=== PATIENT | male | born 1975 | race African-American/Black ===

== ENCOUNTER 2016-11-06 23:02 | Emergency (ER) | payer MEDICAID ==
--- NOTE | 2016-11-07 00:55 | RADIOLOGY REPORT (SQ) ---
EXAM DESCRIPTION: CHEST SINGLE VIEW COMPLETED DATE/TIME: 11/07/2016 12:27 am REASON FOR STUDY: cough COMPARISON: 07/08/2012 NUMBER OF VIEWS: One view. TECHNIQUE: Frontal radiographic image acquired of the chest. LIMITATIONS: None. FINDINGS: LUNGS: Clear. Normal inflation. Pulmonary vascularity normal. No radiopaque foreign bod y. HEART AND MEDIASTINUM: Normal size, no mass or congenital abnormality suggested. BONES: No fracture, worrisome bone lesion or congenital abnormality suggested. BOWEL GAS PATTERN: Non-obstructive. No suggestion of upper abdominal mass. HARDWARE: None in the chest. OTHER: No other significant finding. IMPRESSION: ONE VIEW PEDIATRIC CHEST RADIOGRAPH WITHOUT SIGNIFICANT FINDING. TECHNICAL DOCUMENTATION: JOB ID: [id number] [employer]- All Rights Reserved
[2016-11-07] MEDS ORDERED: OXYMETAZOLINE HCL 0.05% NASAL SPRAY 15 ML BOTTLE NASL ONE (01:10)
[2016-11-07] MEDS ORDERED: AMOXICILLIN TR/POT CLAVULANATE 250-62.5 MG/5 ML 75 ML PO ONE (01:10)
--- NOTE | 2016-11-07 01:15 | ER Document Report ---
ED General - General Chief Complaint: Congestion Stated Complaint: COUGH,CONGESTION Time Seen by Provider: 11/06/16 23:44 Cannot obtain history due to: Mentally challenged Notes: Patient is a 41-year-old male with past medical history of severe MR, who presents with maternal concern regarding noisy breathing for the past 24 hours. She is concerned that he may have a pneumonia. Notes multiple sick contacts of similar sickness. Patient has had copious rhinorrhea and is unable to clear his nose. History is otherwise extremely limited as patient is completely nonverbal and unable to participate history taking. Mother has not noted any fever, change in baseline behavior or vomiting. TRAVEL OUTSIDE OF THE [place] IN LAST 30 DAYS: No - Related Data Allergies/Adverse Reactions: No Known Allergies Allergy (Verified 11/07/16 01:33) Past Medical History - General Information source: Relative - Social History Smoking Status: Never Smoker Frequency of alcohol use: None Drug Abuse: None Lives with: Family Family History: Reviewed & Not Pertinent Patient has suicidal ideation: No Patient has homicidal ideation: No Neurological Medical History: Reports: Hx Seizures Renal/ Medical History: Denies: Hx Peritoneal Dialysis - Immunizations Hx Diphtheria, Pertussis, Tetanus Vaccination: No Review of Systems - Review of Systems -: Yes ROS unobtainable due to patient's medical condition Physical Exam - Vital signs Vitals: Temp Pulse Resp BP Pulse Ox 97.4 F 78 18 106/83 96 11/06/16 23:13 11/06/16 23:13 11/06/16 23:13 11/06/16 23:13 11/06/16 23:13 Interpretation: Normal Notes: PHYSICAL EXAMINATION: GENERAL: Cachectic, chronically ill in appearance but in no acute distress HEAD: Atraumatic, EYES: Pupils equal round and reactive to light, sclera anicteric, conjunctiva are normal. ENT: Copious rhinorrhea, oropharynx clear without exudates. Moist mucous membranes. NECK: supple without lymphadenopathy LUNGS: Breath sounds clear to auscultation bilaterally and equal. Abdomen is upper airway noises bilaterally. HEART: Regular rate and rhythm without murmurs ABDOMEN: Soft, normoactive bowel sounds. No guarding, no rebound. No masses appreciated. EXTREMITIES: Contractures of the bilateral upper and lower extremities. NEUROLOGICAL: Unable to assess. Patient does not move any extremity on command. PSYCH: Nonverbal SKIN: Warm, Dry, normal turgor, no rashes or lesions noted. Course - Re-evaluation Re-evalutation: 11/07/16 01:10 Patient is a 41-year-old patient with severe MR, contracted, emaciated at baseline, nonverbal and unable to communicate needs or wants. Presents with regarding concerns about nasal congestion and cough. Patient is overall nontoxic in appearance, vitals within normal limits, no acute distress. Chest x -ray is clear without evidence of pneumonia. On exam patient has a prominent transmission of upper airway noises and has copious rhinorrhea on exam he is unable to blow his nose. TMs are clear bilaterally. He does have diffuse gingivitis on exam and the mother has asked for antibiotics for treatment of this. Will provide oxymetazoline for the nasal congestion and began Augmentin for gingivitis per maternal request. At this time will discharge with return precautions and follow-up recommendations. Verbal discharge instructions given a the bedside and opportunity for questions given. Medication warnings reviewed. Patient is in agreement with this plan and has verbalized understanding of return precautions and the need for primary care follow-up in the next 24-72 hours. - Vital Signs Vital signs: Temp Pulse Resp BP Pulse Ox 98.0 F 86 20 146/81 H 99 11/07/16 01:37 11/07/16 01:37 11/07/16 01:37 11/07/16 01:37 11/07/16 01:37 Discharge - Discharge Clinical Impression: Nasal congestion, Gingivitis Upper respiratory infection Qualifiers: URI type: unspecified URI Qualified Code(s): J06.9 - Acute upper respiratory infection, unspecified Condition: Good Disposition: HOME, SELF-CARE Additional Instructions: Please provide antibiotics as directed. Follow-up with your sons dentist. Return if he develops worsening breathing, fever greater than 101F, persistent vomiting or any other symptoms that are worrisome to you. Prescriptions: Amoxicillin/Potassium Clav [Augmentin 250-62.5 mg/5 ml] 250 mg PO BID 7 Days
[2016-11-07] MEDS ORDERED: AMOXICILLIN TR/POT CLAVULANATE 250-62.5 MG/5 ML 75 ML ONE (01:39)
[2016-11-07 02:00] VITALS: BP 146/81
== END 2016-11-07 01:55 | disposition home or self-care (01) ==
LOC: ER 23:02
DX: J06.9 Acute upper respiratory infection, unspecified (principal); R09.81 Nasal congestion; K05.10 Chronic gingivitis, plaque induced; R05 Cough
CPT/HCPCS: 99283; 71010; J3490 ×2

== ENCOUNTER 2017-08-18 17:09 | Inpatient (IN) | payer MEDICAID ==
--- NOTE | 2017-08-18 18:09 | ER Document Report ---
ED Medical Screen (RME) - General Chief Complaint: Fever Stated Complaint: FEVER Time Seen by Provider: 08/18/17 18:07 Notes: Patient was seen by the primary care doctor yesterday. Patient was diagnosed with a possible ear infection and placed on Augmentin. However today pt continues to have congestion and fevers. Mom called the primary care physician who referred them to the emergency department. Mom feels that the patient is more bloated than usual. She states that when he was like this before he had a pneumothorax. TRAVEL OUTSIDE OF THE [place] IN LAST 30 DAYS: No - Related Data Allergies/Adverse Reactions: No Known Allergies Allergy (Verified 08/18/17 17:10) Past Medical History Neurological Medical History: Reports: Hx Seizures Renal/ Medical History: Denies: Hx Peritoneal Dialysis - Immunizations Hx Diphtheria, Pertussis, Tetanus Vaccination: No Physical Exam - Vital signs Vitals: Temp Pulse Resp BP Pulse Ox 98.1 F 104 H 20 94/64 L 94 08/18/17 17:33 08/18/17 17:33 08/18/17 17:33 08/18/17 17:33 08/18/17 17:33 Course - Vital Signs Vital signs: Temp Pulse Resp BP Pulse Ox 98.1 F 104 H 20 94/64 L 94 08/18/17 17:33 08/18/17 17:33 08/18/17 17:33 08/18/17 17:33 08/18/17 17:33 Doctor's Discharge - Discharge Referrals: MILA ELIZABETH MD [Primary Care Provider] - Follow up as needed
--- NOTE | 2017-08-18 19:17 | RADIOLOGY REPORT (SQ) ---
EXAM DESCRIPTION: CHEST SINGLE VIEW COMPLETED DATE/TIME: 08/18/2017 6:44 pm REASON FOR STUDY: fever/congested COMPARISON: 11/07/2016 EXAM PARAMETERS: NUMBER OF VIEWS: One view. TECHNIQUE: 2 frontal radiographic views of the chest acquired. RADIATION DOSE: NA LIMITATIONS: None. FINDINGS: LUNGS AND PLEURA: No opacities, masses or pneumothorax. No pleural effusion. MEDIASTINUM AND HILAR STRUCTURES: No masses. Contour normal. HEART AND VASCULAR STRUCTURES: Heart normal in size. Normal vasculature. BONES: No acute findings. HARDWARE: None in the chest. OTHER: No other significant finding. IMPRESSION: NO ACUTE RADIOGRAPHIC FINDING IN THE CHEST. TECHNICAL DOCUMENTATION: JOB ID: [id number] [employer]- All Rights Reserved Reading location - IP/workstation name: [email or web address]
[2017-08-18 19:43] LABS: HEMATOCRIT 22.9 % (37.9-51.0); MEAN CORPUSCULAR HEMOGLOBIN 16.3 pg (27.0-33.4); MEAN CORPUSCULAR HGB CONC 26.7 g/dL (32.0-36.0); MEAN CORPUSCULAR VOLUME 61 fl (80-97); RED BLOOD COUNT 3.74 10^6/uL (4.35-5.55); RED CELL DISTRIBUTION WIDTH 35.2 % (11.5-14.0); WHITE BLOOD COUNT 16.4 10^3/uL (4.0-10.5)
[2017-08-18 20:06] LABS: HEMOGLOBIN 6.1 g/dL (13.5-17.0)
[2017-08-18 20:07] LABS: ALANINE AMINOTRANSFERASE 23 U/L (21-72); ALKALINE PHOSPHATASE 54 U/L (38-126); ANION GAP 10 (5-19); ASPARTATE AMINO TRANSFERASE 12 U/L (17-59); BILIRUBIN,DIRECT 0.2 mg/dL (0.0-0.4); BILIRUBIN,TOTAL 0.2 mg/dL (0.2-1.3); BLOOD UREA NITROGEN 12 mg/dL (7-20); CALCIUM 9.2 mg/dL (8.4-10.2); CARBON DIOXIDE 26 mmol/L (22-30); CHLORIDE 107 mmol/L (98-107); GLUCOSE 97 mg/dL (75-110); POTASSIUM 4.2 mmol/L (3.6-5.0); SODIUM 142.8 mmol/L (137-145); TOTAL PROTEIN 6.9 g/dL (6.3-8.2)
[2017-08-18 20:08] LABS: ABSOLUTE MONOCYTES # (MANUAL) 0.7 10^3/uL (0.1-1.4); ABSOLUTE NEUTROPHILS# (MANUAL) 12.5 10^3/uL (1.7-8.2); BASOPHILS % (MANUAL) 0 % (0-2); EOSINOPHILS % (MANUAL) 2 % (0-6); LYMPHOCYTES % (MANUAL) 18 % (13-45); MONOCYTES % (MANUAL) 4 % (3-13); SEGMENTED NEUTROPHILS % (MAN) 76 % (42-78); TOTAL CELLS COUNTED 100
[2017-08-18 20:10] LABS: ANISOCYTOSIS 4+; HYPOCHROMASIA 2+; OVALOCYTES SLIGHT; PLATELET COMMENT INCREASED; POIKILOCYTOSIS 2+; TOXIC GRANULATION SLIGHT
[2017-08-18 20:11] LABS: PLATELET COUNT 1120 10^3/uL (150-450)
[2017-08-18 21:13] LABS: AMORPHOUS SEDIMENT,URINE TRACE /HPF; APPEARANCE,URINE CLOUDY; BILIRUBIN,URINE NEGATIVE (NEGATIVE); COLOR,URINE YELLOW; GLUCOSE, URINE NEGATIVE (NEGATIVE); KETONES,URINE NEGATIVE (NEGATIVE); LEUKOCYTE ESTERASE,URINE NEGATIVE (NEGATIVE); NITRITE,URINE NEGATIVE (NEGATIVE); PROTEIN,URINE NEGATIVE (NEGATIVE); URINE SPECIFIC GRAVITY 1.018
--- NOTE | 2017-08-18 21:40 | ER Document Report ---
ED General - General Chief Complaint: Fever Stated Complaint: FEVER Time Seen by Provider: 08/18/17 18:07 Notes: 42-year-old to the emergency department for evaluation of intermittent fevers. Patient was started on antibiotics a few days ago for possible ear infection. Patient severely handicapped and he can care of by family members. Has been eating. Mom states that he has not had a bowel movement for several days. Seems to have bloating of the abdomen and difficulty breathing. Denies any change black tarry stools or blood bright red blood in the stool. No vomiting. Currently taking Augmentin. Followed by Dr. Childress. TRAVEL OUTSIDE OF THE [place] IN LAST 30 DAYS: No - HPI Onset: Yesterday Onset/Duration: Gradual - Related Data Allergies/Adverse Reactions: No Known Allergies Allergy (Verified 08/18/17 19:20) Past Medical History - General Information source: Parent - Social History Smoking Status: Never Smoker Cigarette use (# per day): No Frequency of alcohol use: None Drug Abuse: None Lives with: Family, Parents Family History: Reviewed & Not Pertinent Patient has suicidal ideation: No Patient has homicidal ideation: No Neurological Medical History: Reports: Hx Seizures Renal/ Medical History: Denies: Hx Peritoneal Dialysis - Immunizations Hx Diphtheria, Pertussis, Tetanus Vaccination: No Review of Systems - Review of Systems -: Yes ROS unobtainable due to patient's medical condition Physical Exam - Vital signs Vitals: Temp Pulse Resp BP Pulse Ox 98.1 F 104 H 20 94/64 L 94 08/18/17 17:33 08/18/17 17:33 08/18/17 17:33 08/18/17 17:33 08/18/17 17:33 Interpretation: Tachycardic - General Notes: Patient with bilateral upper extremity contractures. Obvious developmental delay. Nonverbal. Burning eyes. - HEENT Head: Normocephalic, Atraumatic Eyes: Normal Pupils: PERRL - Respiratory Respiratory status: No respiratory distress Chest status: Nontender Breath sounds: Normal Chest palpation: Normal - Cardiovascular Rhythm: Tachycardia Heart sounds: Normal auscultation Murmur: No - Abdominal Inspection: Normal Distension: No distension Bowel sounds: Normal Tenderness: Nontender Organomegaly: No organomegaly - Back Back: Normal, Nontender - Extremities General upper extremity: Normal inspection, Nontender, Normal color, Normal ROM , Normal temperature General lower extremity: Normal inspection, Nontender, Normal color, Normal ROM , Normal temperature, Normal weight bearing. No: Cece's sign - Skin Skin Temperature: Warm Skin Moisture: Dry Skin Color: Normal Course - Re-evaluation Re-evalutation: 08/18/17 23:35 CT scan of the chest abdomen pelvis unremarkable for any significant pathology other than some large stool burden in the sigmoid colon. Patient has a grossly abnormal CBC with elevated WBC, low H&H and extremely high platelets. No fever is been recorded while in the emergency department. I have been in the room multiple times and explained to the mother on multiple occasions during this visit what my treatment plan is. I have consulted the hospitalist for admission however hospitalist would like to get repeat blood draw performed in for me to consult with a able seaman to see if this is an appropriate admission. I do not feel compelled at this time to call hematology and to like to repeat CBC as more than likely this represents a laboratory error. If not I have no problem calling. Patient is occult blood negative at this time. 08/18/17 23:59 Hemoglobin is dropped to 5.8 from 6.1. Occult blood negative in the stool. Consulted GI who is comfortable keeping patient here. Waiting on the final differential on the CBC. Ordered blood at this time. Will begin transfusion. 08/19/17 00:20 Altered both hematology as well as gastroenterology as well as internal medicine. They have asked me to go ahead and cover with Zosyn and get blood culture and lactic acid. Only transfuse 1 unit of blood. Oncology will follow. GI will follow. Hospitalist will except. - Vital Signs Vital signs: Temp Pulse Resp BP Pulse Ox 98.1 F 104 H 20 94/64 L 94 08/18/17 17:33 08/18/17 17:33 08/18/17 17:33 08/18/17 17:33 08/18/17 17:33 - Laboratory Result Diagrams: 08/18/17 19:30 08/18/17 19:30 Laboratory results interpreted by me: 08/18/17 08/18/17 08/18/17 19:30 19:30 20:34 WBC 16.4 H RBC 3.74 L Hgb 6.1 L Hct 22.9 L MCV 61 L MCH 16.3 L MCHC 26.7 L RDW 35.2 H Plt Count 1120 H* Abs Neuts (Manual) 12.5 H Creatinine 0.45 L AST 12 L Urine Urobilinogen 4.0 H Crossmatch 08/18/17 21:34 WBC RBC Hgb Hct MCV MCH MCHC RDW Plt Count Abs Neuts (Manual) Creatinine AST Urine Urobilinogen Crossmatch See Detail Critical Care Note - Critical Care Note Total time excluding time spent on procedures (mins): 60 Comments: Anemia, GI bleed, consultation with specialists Discharge - Discharge Clinical Impression: Thrombocytosis Anemia Qualifiers: Anemia type: unspecified type Qualified Code(s): D64.9 - Anemia, unspecified Disposition: ADMITTED INPATIENT Admitting Provider: [place] [facility] Unit Admitted: IMCU Referrals: MILA ELIZABETH MD [Primary Care Provider] - Follow up as needed
[2017-08-18] MEDS ORDERED: AMOXICILLIN TR/POT CLAVULANATE 250-62.5 MG/5 ML 75 ML PO ONE (23:00)
--- NOTE | 2017-08-18 23:00 | RADIOLOGY REPORT (SQ) ---
EXAM DESCRIPTION: CT CHEST WITHOUT; CT ABD/PELVIS NO ORAL OR IV COMPLETED DATE/TIME: 08/18/2017 10:44 pm REASON FOR STUDY: fever, altered; abd pain, fever, bloating COMPARISON: None. TECHNIQUE: CT scan of the chest performed without intravenous contrast using helical scanning techni que. Images reviewed with lung, soft tissue and bone windows. Reconstructed coronal and sagittal MPR images reviewed. All images stored on PACS. All CT scanners at this facility use dose modulation, iterative reconstruction, and/or weight based d osing when appropriate to reduce radiation dose to as low as reasonably achievable (ALARA). [facility]: Dose Right [facility]: CareDose [facility]: Dose Right [facility]: [employer] [facility]: GIS Cloud RADIATION DOSE: CT Rad equipment meets quality standard of care and radiation dose reduction techniq ues were employed. CTDIvol: 4.8 mGy. DLP: 249 mGy-cm. mGy. LIMITATIONS: None. FINDINGS: AXILLAE: No adenopathy. CHEST WALL: No masses. No subcutaneous air. LUNGS: No nodules or masses. No pneumothorax. No infiltrates. PLEURA: No effusions. No calcifications. THYROID: No masses or significant asymmetry. HILAR AND MEDIASTINAL STRUCTURES: No identified masses or abnormal nodes. AORTA AND GREAT VESSELS: No aneurysm. HEART: No pericardial effusion. HARDWARE AND LIFELINES: None. BONES: No significant finding. OTHER: No other significant finding. IMPRESSION: No acute findings in the chest. COMPARISON: None. TECHNIQUE: CT scan of the abdomen and pelvis performed without intravenous contrast and withoutoral contrast using helical scanning technique with dynamic intravenous contrast injection. Images review ed with lung, soft tissue and bone windows. Reconstructed coronal and sagittal MPR images reviewed. All images stored on PACS. All CT scanners at this facility use dose modulation, iterative reconstruction, and/or weight based d osing when appropriate to reduce radiation dose to as low as reasonably achievable (ALARA). [facility]: [facility]: SureCare [facility]: Dose Right [facility]: [employer] 4D [facility]: GIS Cloud RADIATION DOSE: CT Rad equipment meets quality standard of care and radiation dose reduction techniq ues were employed. CTDIvol: 4.8 mGy. DLP: 249 mGy-cm.mGy. LIMITATIONS: None. FINDINGS: LIVER: Normal size. No masses. No dilated ducts. SPLEEN: Normal size. No focal lesions. PANCREAS: No masses. No significant calcifications. No adjacent inflammation or peripancreatic flui d collections. Pancreatic duct not dilated. GALLBLADDER: No identified stones by CT criteria. No inflammatory changes to suggest cholecystitis. ADRENAL GLANDS: No significant masses or asymmetry. RIGHT KIDNEY AND URETER: No solid masses. Assessment limited by lack of IV contrast. No significant c alcification. No hydronephrosis or hydroureter. LEFT KIDNEY AND URETER: No solid masses. Assessment limited by lack of IV contrast. No significant ca lcification. No hydronephrosis or hydroureter. AORTA AND VESSELS: No aneurysm. RETROPERITONEUM: No retroperitoneal adenopathy, hemorrhage or masses. APPENDIX: Normal. LARGE AND SMALL BOWEL: Large amount of stool present in the colon, particularly the rectosigmoid colo n. No evidence for focal inflammatory changes or free fluid. . ABDOMINAL WALL: No hernia or masses. PERITONEAL CAVITY: No free air. No free fluid. No peritoneal implants or masses. PELVIS: No mass or free fluid. Normal bladder. BONES: No acute findings. OTHER: No other significant finding. IMPRESSION: Large amount of stool present in the colon, particularly the rectosigmoid colon. No dillon dence for focal inflammatory changes or free fluid. TECHNICAL DOCUMENTATION: JOB ID: [id number] [place]-72 Quality ID # [id number]: Final reports with documentation of one or more dose reduction techniques (e.g., Au tomated exposure control, adjustment of the mA and/or kV according to patient size, use of iterative reconstruction technique) 2010 [employer]- All Rights Reserved Reading location - IP/workstation name: [email or web address]
--- NOTE | 2017-08-18 23:00 | RADIOLOGY REPORT (SQ) ---
EXAM DESCRIPTION: CT CHEST WITHOUT; CT ABD/PELVIS NO ORAL OR IV COMPLETED DATE/TIME: 08/18/2017 10:44 pm REASON FOR STUDY: fever, altered; abd pain, fever, bloating COMPARISON: None. TECHNIQUE: CT scan of the chest performed without intravenous contrast using helical scanning techni que. Images reviewed with lung, soft tissue and bone windows. Reconstructed coronal and sagittal MPR images reviewed. All images stored on PACS. All CT scanners at this facility use dose modulation, iterative reconstruction, and/or weight based d osing when appropriate to reduce radiation dose to as low as reasonably achievable (ALARA). [facility]: Dose Right [facility]: CareDose [facility]: Dose Right [facility]: [facility]: Differential RADIATION DOSE: CT Rad equipment meets quality standard of care and radiation dose reduction techniq ues were employed. CTDIvol: 4.8 mGy. DLP: 249 mGy-cm. mGy. LIMITATIONS: None. FINDINGS: AXILLAE: No adenopathy. CHEST WALL: No masses. No subcutaneous air. LUNGS: No nodules or masses. No pneumothorax. No infiltrates. PLEURA: No effusions. No calcifications. THYROID: No masses or significant asymmetry. HILAR AND MEDIASTINAL STRUCTURES: No identified masses or abnormal nodes. AORTA AND GREAT VESSELS: No aneurysm. HEART: No pericardial effusion. HARDWARE AND LIFELINES: None. BONES: No significant finding. OTHER: No other significant finding. IMPRESSION: No acute findings in the chest. COMPARISON: None. TECHNIQUE: CT scan of the abdomen and pelvis performed without intravenous contrast and withoutoral contrast using helical scanning technique with dynamic intravenous contrast injection. Images review ed with lung, soft tissue and bone windows. Reconstructed coronal and sagittal MPR images reviewed. All images stored on PACS. All CT scanners at this facility use dose modulation, iterative reconstruction, and/or weight based d osing when appropriate to reduce radiation dose to as low as reasonably achievable (ALARA). [facility]: Dose Right [facility] SureCare [facility]: Dose Right [facility]: [employer] 4D [facility]: Differential RADIATION DOSE: CT Rad equipment meets quality standard of care and radiation dose reduction techniq ues were employed. CTDIvol: 4.8 mGy. DLP: 249 mGy-cm.mGy. LIMITATIONS: None. FINDINGS: LIVER: Normal size. No masses. No dilated ducts. SPLEEN: Normal size. No focal lesions. PANCREAS: No masses. No significant calcifications. No adjacent inflammation or peripancreatic flui d collections. Pancreatic duct not dilated. GALLBLADDER: No identified stones by CT criteria. No inflammatory changes to suggest cholecystitis. ADRENAL GLANDS: No significant masses or asymmetry. RIGHT KIDNEY AND URETER: No solid masses. Assessment limited by lack of IV contrast. No significant c alcification. No hydronephrosis or hydroureter. LEFT KIDNEY AND URETER: No solid masses. Assessment limited by lack of IV contrast. No significant ca lcification. No hydronephrosis or hydroureter. AORTA AND VESSELS: No aneurysm. RETROPERITONEUM: No retroperitoneal adenopathy, hemorrhage or masses. APPENDIX: Normal. LARGE AND SMALL BOWEL: Large amount of stool present in the colon, particularly the rectosigmoid colo n. No evidence for focal inflammatory changes or free fluid. . ABDOMINAL WALL: No hernia or masses. PERITONEAL CAVITY: No free air. No free fluid. No peritoneal implants or masses. PELVIS: No mass or free fluid. Normal bladder. BONES: No acute findings. OTHER: No other significant finding. IMPRESSION: Large amount of stool present in the colon, particularly the rectosigmoid colon. No dillon dence for focal inflammatory changes or free fluid. TECHNICAL DOCUMENTATION: JOB ID: [id number] [place]-72 Quality ID # [id number]: Final reports with documentation of one or more dose reduction techniques (e.g., Au tomated exposure control, adjustment of the mA and/or kV according to patient size, use of iterative reconstruction technique) 2010 [employer] All Rights Reserved Reading location - IP/workstation name: [email or web address]
[2017-08-18] MEDS ORDERED: AMOXICILLIN TR/POT CLAVULANATE 250-62.5 MG/5 ML 75 ML ONE (23:34)
[2017-08-18 23:49] LABS: MEAN CORPUSCULAR HEMOGLOBIN 16.1 pg (27.0-33.4); MEAN CORPUSCULAR HGB CONC 26.6 g/dL (32.0-36.0); MEAN CORPUSCULAR VOLUME 61 fl (80-97); PLATELET COUNT 980 10^3/uL (150-450); RED BLOOD COUNT 3.62 10^6/uL (4.35-5.55); RED CELL DISTRIBUTION WIDTH 35.5 % (11.5-14.0); WHITE BLOOD COUNT 14.9 10^3/uL (4.0-10.5)
[2017-08-18 23:52] LABS: HEMOGLOBIN 5.8 g/dL (13.5-17.0)
[2017-08-18] MEDS ORDERED: NORMAL SALINE 250 ML IV PRN (23:52)
[2017-08-18] MEDS ORDERED: PANTOPRAZOLE SODIUM 40 MG VIAL IV ONE (23:54)
[2017-08-19 00:20] LABS: ABSOLUTE LYMPHOCYTES# (MANUAL) 2.5 10^3/uL (0.5-4.7); ABSOLUTE MONOCYTES # (MANUAL) 0.6 10^3/uL (0.1-1.4); BASOPHILS % (MANUAL) 0 % (0-2); EOSINOPHILS % (MANUAL) 5 % (0-6); LYMPHOCYTES % (MANUAL) 17 % (13-45); MONOCYTES % (MANUAL) 4 % (3-13); SEGMENTED NEUTROPHILS % (MAN) 74 % (42-78); TOTAL CELLS COUNTED 100; TOXIC GRANULATION 1+; TOXIC VACUOLATION PRESENT
[2017-08-19] MEDS ORDERED: PIPERACILLIN/TAZOBACTAM 3.375 GM VIAL IV ONE (00:20)
[2017-08-19 00:21] LABS: ANISOCYTOSIS 4+; HYPOCHROMASIA 1+; POIKILOCYTOSIS 3+
[2017-08-19 00:22] LABS: HELMET CELLS 1+; OVALOCYTES 1+
[2017-08-19 00:23] LABS: SCHISTOCYTES 2+; SPHEROCYTES 2+; TARGET CELLS 1+
[2017-08-19 00:24] LABS: BURR CELLS SLIGHT; PLATELET COMMENT INCREASED; PLATELET GIANT PRESENT; PLATELET LARGE PRESENT; TEAR DROP CELLS SLIGHT
[2017-08-19] MEDS ORDERED: ACETAMINOPHEN 325 MG TABLET PO PRN ×2 (00:27→09:44)
[2017-08-19] MEDS ORDERED: PROMETHAZINE HCL INJ 25 MG/1 ML VIAL IV PRN ×2 (00:27→08:00)
[2017-08-19] MEDS ORDERED: ALBUTEROL SULFATE 0.083% NEB 2.5 MG/3 ML AMPUL NEB PRN (00:38)
[2017-08-19] MEDS ORDERED: BISACODYL 5 MG TABEC PO ONE (00:38)
[2017-08-19] MEDS ORDERED: BISACODYL 10 MG SUPP.RECT PR PRN (00:43)
[2017-08-19] MEDS ORDERED: PIPERACILLIN/TAZOBACTAM 3.375 GM VIAL IV PRN (00:47)
[2017-08-19 01:03] LABS: INTERNATIONAL RATION (INR) 1.11; PROTHROMBIN TIME 15.1 SEC (11.4-15.4)
[2017-08-19 01:04] LABS: PARTIAL THROMBOPLASTIN TIME 40.6 SEC (23.5-35.8)
[2017-08-19] MEDS: IPRATROPIUM/ALBUTEROL 0.5-2.5 MG/3 ML AMPUL NEB SCH ×4 (02:35→19:33)
[2017-08-19 02:37] LABS: ABSOLUTE RETICS # 0.057 10^6/uL (0.028-0.122); RETICULOCYTE COUNT (AUTO) 1.47 % (0.66-2.85)
[2017-08-19 02:47] LABS: IRON(TIBC) 12.6 ug/dL (49-181)
--- NOTE | 2017-08-19 02:50 | PDOC H&P ---
History of Present Illness Admission Date/PCP: MILA ELIZABETH MD Patient complains of: Tachypnea and abdominal distention for a few days per mother. History of Present Illness: CHRISTIE SIMPSON is a 42 year old nonverbal, contracted male with history of cerebral palsy and seizure disorder is admitted with above-mentioned complaints. The history was obtained from his mother at bedside and the ED physician and notes. According to his mother, the patient had decreased p.o. intake last week so she took him to his PCPs who thought that he had a strep throat since 4 of her grand children had it. He was started on a course of Augmentin which he finished. He seemed to be doing well but 3-4 days ago, she noticed that he was tachypneic and sounded congested and he was using his abdominal muscles to breathe. He was also more lethargic and looking weaker than his baseline. According to his mother, he is on regular diet and he seldomly chokes when he eats. There was no report of any vomiting. He was seen again by his primary physician on 08/16/2017 who thought that the patient may have had ear infection. The ear exam was limited since he had cerumen bilaterally so he was given eardrops and was restarted on Augmentin. on 08/18/2017, his mother called home health nurse since she was concerned about his breathing. She also noticed that he has been bloated since his PCP's visit. He apparently has been constipated for about a week with minimal bowel movement. She said that he had stool smears with no hematochezia or melena and his urine output was adequate. She decided to bring him to the hospital for further management and treatment. In the ED, his temperature was 98.1, heart rate 104, respiratory rate 20, blood pressure 94/64 with oxygen saturation of 94% on room air. His WBC was 16.4 with hemoglobin of 6.1 and platelet count of 1120K. UA and stool guaiac were both negative. A chest x-ray as well as CAT scan of the chest/abdomen and pelvis were done with the latter showing large amount of stool. He received 3.325 g Zosyn 1 and 1 unit of packed red blood was ordered. Past Medical History Medical History: Other - cerebral palsy; seizure disorder. Neurological Medical History: Reports: Seizures Past Surgical History Past Surgical History: Reports: Other - muscle release since contracted per mother. Social History Lives with: Family, Parents Smoking Status: Never Smoker Cigarettes Packs Per Day: 0 Frequency of Alcohol Use: None Drugs: None - Advance Directive Resuscitation Status: Full Code Family History Parental Family History Reviewed: Yes - no cardiac disease in family. Children Family History Reviewed: No Sibling(s) Family History Reviewed.: Yes Medication/Allergy Allergies/Adverse Reactions: No Known Allergies Allergy (Verified 08/18/17 19:20) Review of Systems ROS unobtainable: Other - Pertinent positives and negatives as detailed in the HPI. Physical Exam Vital Signs: Temp Pulse Resp BP Pulse Ox 98.1 F 104 H 20 94/64 L 94 08/18/17 17:33 08/18/17 17:33 08/18/17 17:33 08/18/17 17:33 08/18/17 17:33 Intake & Output 08/17/17 08/18/17 08/19/17 06:59 06:59 06:59 Weight 21.001 kg General appearance: PRESENT: mild distress - on room air, thin, other - contracted. Head exam: PRESENT: atraumatic Eye exam: PRESENT: conjunctiva pink, PERRLA Ear exam: PRESENT: normal external ear exam, other - cerumen bilateral ears Mouth exam: PRESENT: moist Respiratory exam: PRESENT: decreased breath sounds. ABSENT: rales, rhonchi, wheezes Cardiovascular exam: PRESENT: RRR - S1 S2 normal. Pulses: PRESENT: normal dorsalis pedis pul GI/Abdominal exam: PRESENT: normal bowel sounds, soft. ABSENT: distended, rebound, tenderness Rectal exam: PRESENT: deferred Extremities exam: PRESENT: other - contracted.. ABSENT: pedal edema Neurological exam: PRESENT: alert, awake Skin exam: PRESENT: dry, intact, warm. ABSENT: cyanosis, rash Results Laboratory Results: 08/18/17 19:30 08/18/17 08/18/17 08/18/17 19:30 19:30 20:34 WBC 16.4 H RBC 3.74 L Hgb 6.1 L Hct 22.9 L MCV 61 L MCH 16.3 L MCHC 26.7 L RDW 35.2 H Plt Count 1120 H* Seg Neutrophils % Not Reportable Lymphocytes % Not Reportable Monocytes % Not Reportable Eosinophils % Not Reportable Basophils % Not Reportable Absolute Neutrophils Not Reportable Absolute Lymphocytes Not Reportable Absolute Monocytes Not Reportable Absolute Eosinophils Not Reportable Absolute Basophils Not Reportable Sodium 142.8 Potassium 4.2 Chloride 107 Carbon Dioxide 26 Anion Gap 10 BUN 12 Creatinine 0.45 L Est GFR ( Amer) > 60 Est GFR (Non-Af Amer) > 60 Glucose 97 Calcium 9.2 Total Bilirubin 0.2 AST 12 L ALT 23 Alkaline Phosphatase 54 Total Protein 6.9 Albumin 4.0 Lipase 111.0 Urine Color YELLOW Urine Appearance CLOUDY Urine pH 7.0 Ur Specific Sledge 1.018 Urine Protein NEGATIVE Urine Glucose (UA) NEGATIVE Urine Ketones NEGATIVE Urine Blood NEGATIVE Urine Nitrite NEGATIVE Ur Leukocyte Esterase NEGATIVE Urine WBC (Auto) 7 Urine RBC (Auto) 6 Stool Occult Blood Blood Type Antibody Screen 08/18/17 08/18/17 08/18/17 21:34 22:58 23:40 WBC RBC Hgb Hct MCV MCH MCHC RDW Plt Count Seg Neutrophils % Not Reportable Lymphocytes % Not Reportable Monocytes % Not Reportable Eosinophils % Not Reportable Basophils % Not Reportable Absolute Neutrophils Not Reportable Absolute Lymphocytes Not Reportable Absolute Monocytes Not Reportable Absolute Eosinophils Not Reportable Absolute Basophils Not Reportable Sodium Potassium Chloride Carbon Dioxide Anion Gap BUN Creatinine Est GFR ( Amer) Est GFR (Non-Af Amer) Glucose Calcium Total Bilirubin AST ALT Alkaline Phosphatase Total Protein Albumin Lipase Urine Color Urine Appearance Urine pH Ur Specific Sledge Urine Protein Urine Glucose (UA) Urine Ketones Urine Blood Urine Nitrite Ur Leukocyte Esterase Urine WBC (Auto) Urine RBC (Auto) Stool Occult Blood NEGATIVE Blood Type A POSITIVE Antibody Screen NEGATIVE Impressions: Chest X-Ray 08/18/17 18:07 IMPRESSION: NO ACUTE RADIOGRAPHIC FINDING IN THE CHEST. Chest CT 08/18/17 20:54 IMPRESSION: No acute findings in the chest. IMPRESSION: Large amount of stool present in the colon, particularly the rectosigmoid colon. No evidence for focal inflammatory changes or free fluid. Abdomen/Pelvis CT 08/18/17 20:55 IMPRESSION: No acute findings in the chest. IMPRESSION: Large amount of stool present in the colon, particularly the rectosigmoid colon. No evidence for focal inflammatory changes or free fluid. Assessment & Plan - Diagnosis (1) Sepsis Qualifiers: Sepsis type: sepsis due to unspecified organism Qualified Code(s): A41.9 - Sepsis, unspecified organism Is this a current diagnosis for this admission?: Yes Plan: Given tachycardia and fever prior to admission, possibly secondary to aspiration pneumonitis/pneumonia and/or acute bronchitis. Chest x-ray, UA and CAT scans of the chest/abdomen/pelvis were reviewed. The CAT scans were done without IV contrast (Limited IV access) so they were limited studies. We will continue broad coverage antibiotics with Zosyn for now and follow-up blood cultures and lactic acid. Aspiration precautions. (2) Tachypnea Is this a current diagnosis for this admission?: Yes Plan: Secondary to #1 and/or anemia. Will schedule DuoNeb treatments and mucinex in addition to albuterol as needed and continue Zosyn for now. Further management as detailed below (3) Anemia Qualifiers: Anemia type: unspecified type Qualified Code(s): D64.9 - Anemia, unspecified Is this a current diagnosis for this admission?: Yes Plan: secondary to possibly iron deficiency and/or anemia of chronic disease. Hemoccult stool was negative. CAT scans abdomen/pelvis only showed constipation (done without IV contrast). Will check iron studies, B12, folate and reticulocyte count. We will transfuse 1 unit of packed red blood cells and monitor H&H. Continue IV Protonix. GI and oncology were consulted by the ED physician. (4) Thrombocytosis Is this a current diagnosis for this admission?: Yes Plan: Possibly reactive in the setting of severe anemia and/or due to underlying pathology. Will continue to monitor H&H transfuse as indicated. The case was discussed between Dr. Devine of oncology and ED physician who will see the patient in a.m. (5) Seizure disorder Is this a current diagnosis for this admission?: No Plan: No report of any recent seizure activity. We will check phenobarbital level before restarting it (dose needs to be verified). This could cause megaloblastic anemia. Further management per oncology. (6) Constipation Is this a current diagnosis for this admission?: Yes Plan: Dulcolax supp. He may need manual disimpaction. - Time Time Spent: Greater than 70 Minutes Anticipated discharge: Home - Inpatient Certification Based on my medical assessment, after consideration of the patient's comorbidities, presenting symptoms, or acuity I expect that the services needed warrant INPATIENT care.: Yes I certify that my determination is in accordance with my understanding of Medicare's requirements for reasonable and necessary INPATIENT services [42 CFR 412.3e].: Yes
[2017-08-19 04:07] LABS: FOLATE > 20.00 ng/mL (>2.76)
[2017-08-19] MEDS: NORMAL SALINE 1000 ML 1,000 ML IV PRN ×2 (05:40→18:14)
[2017-08-19] MEDS ORDERED: PIPERACILLIN SODIUM/TAZOBACTAM 3.375 GM in NORMAL SALINE 100 ML IV SCH (06:00)
[2017-08-19 07:08] LABS: HEMATOCRIT 27.4 % (37.9-51.0); MEAN CORPUSCULAR HEMOGLOBIN 20.5 pg (27.0-33.4); MEAN CORPUSCULAR HGB CONC 30.8 g/dL (32.0-36.0); PLATELET COUNT 901 10^3/uL (150-450); RED CELL DISTRIBUTION WIDTH 35.3 % (11.5-14.0); WHITE BLOOD COUNT 9.4 10^3/uL (4.0-10.5)
[2017-08-19 07:12] LABS: HEMOGLOBIN 8.4 g/dL (13.5-17.0)
[2017-08-19 07:46] LABS: MEAN CORPUSCULAR VOLUME 67 fl (80-97)
[2017-08-19] MEDS ORDERED: IRON DEXTRAN INJ 100 MG/2 ML VIAL IV ONE (09:31)
[2017-08-19] MEDS ORDERED: DIPHENHYDRAMINE HCL 25 MG CAPSULE PO PRN (09:44)
--- NOTE | 2017-08-19 09:44 | PDOC CONSULTATION ---
Consultation Consult Date: 08/19/17 Consult reason:: Hematology consultation was requested for anemia and thrombocytosis. History of Present Illness Admission Date/PCP: 08/19/17 00:40 MILA ELIZABETH MD History of Present Illness: CHRISTIE SIMPSON is a 42 year old nonverbal, contracted male with history of cerebral palsy, muscular dystrophy, and seizure disorder is admitted with above- mentioned complaints. The history was obtained from his mother at bedside and the notes. According to his mother, the patient had decreased p.o. intake last week so she took him to his PCPs who thought that he had a strep throat since 4 of her grand children had it. He was started on a course of Augmentin which he finished. He seemed to be doing well but 3-4 days ago, she noticed that he was tachypneic and sounded congested and he was using his abdominal muscles to breathe. He was also more lethargic and looking weaker than his baseline. According to his mother, he is on regular diet and he seldomly chokes when he eats. There was no report of any vomiting. He was seen again by his primary physician on 08/16/2017 who thought that the patient may have had ear infection. The ear exam was limited since he had cerumen bilaterally so he was given eardrops and was restarted on Augmentin. on 08/18/2017, his mother called home health nurse since she was concerned about his breathing. She also noticed that he has been bloated since his PCP's visit. He apparently has been constipated for about a week with minimal bowel movement. She said that he had stool smears with no hematochezia or melena and his urine output was adequate. She decided to bring him to the hospital for further management and treatment. In the ED, his temperature was 98.1, heart rate 104, respiratory rate 20, blood pressure 94/64 with oxygen saturation of 94% on room air. His WBC was 16.4 with hemoglobin of 6.1 and platelet count of 1120K. UA and stool guaiac were both negative. A chest x-ray as well as CAT scan of the chest/abdomen and pelvis were done with the latter showing large amount of stool. He received 3.325 g Zosyn 1 and 1 unit of packed red blood was ordered. Today, mother states that he continues to have abnormal breathing and appears to be in pain. He has been given 1 unit PRBCs and his HGB and PLT have improved slightly. His ferritin was found to be 3. Past Medical History Neurological Medical History: Reports: Seizures Musculoskeltal Medical History: Reports: Other - Cerebral Palsey, Muscular Dystrophy Hematology History Note: No history of prior blood transfusion. Past Surgical History Past Surgical History: Reports: Other - muscle release since contracted per mother. Social History Lives with: Family, Parents Smoking Status: Never Smoker Cigarettes Packs Per Day: 0 Frequency of Alcohol Use: None Drugs: None - Advance Directive Resuscitation Status: Full Code Family History Parental Family History Reviewed: Yes - MGM with Lung Cancer Children Family History Reviewed: NA Sibling(s) Family History Reviewed.: Yes - Sister with Brain tumor. Other relatives with Mental retardation and HTN. Medication/Allergy Allergies/Adverse Reactions: No Known Allergies Allergy (Verified 08/18/17 19:20) Review of Systems ROS unobtainable: Due to mental status, Other - Patient non-verbal. Physical Exam Vital Signs: Temp Pulse Resp BP Pulse Ox 97.3 F 90 16 108/68 94 08/19/17 07:47 08/19/17 08:09 08/19/17 08:09 08/19/17 07:47 08/19/17 08:09 Intake & Output 08/18/17 08/19/17 08/20/17 06:59 06:59 06:59 Intake Total 350 Output Total 0 Balance 350 Exam: Very thin, small, 42 year old Male. Mother is at bedside. Head exam: PRESENT: normocephalic Eye exam: PRESENT: PERRLA Mouth exam: PRESENT: moist Neck exam: ABSENT: lymphadenopathy, tenderness Respiratory exam: PRESENT: clear to auscultation poncho Cardiovascular exam: PRESENT: RRR. ABSENT: systolic murmur GI/Abdominal exam: PRESENT: normal bowel sounds, soft, other - Difficult to asses otherwise. Cannot feel organomegaly due to contractures. Rectal exam: PRESENT: deferred Extremities exam: ABSENT: pedal edema Musculoskeletal exam: PRESENT: other - All 4 extremities very small and contracted. Neurological exam: PRESENT: awake, aphasic Psychiatric exam: PRESENT: other - Unable to fully determine. Focused psych exam: PRESENT: other - Unable to determine. Skin exam: PRESENT: normal color Results Laboratory Results: 08/19/17 06:35 08/19/17 08/19/17 08/19/17 00:42 00:42 00:42 WBC RBC Hgb Hct MCV MCH MCHC RDW Plt Count Retic Count (auto) 1.47 Absolute Retic 0.057 Lactic Acid 0.9 Iron 12.6 L TIBC 396 % Saturation 3 Ferritin 3.00 L Vitamin B12 Folate > 20.00 08/19/17 08/19/17 00:42 06:35 WBC 9.4 RBC 4.10 L Hgb 8.4 L D Hct 27.4 L MCV 67 L D MCH 20.5 L MCHC 30.8 L RDW 35.3 H Plt Count 901 H Retic Count (auto) Absolute Retic Lactic Acid Iron TIBC % Saturation Ferritin Vitamin B12 839.0 Folate Impressions: Chest X-Ray 08/18/17 18:07 IMPRESSION: NO ACUTE RADIOGRAPHIC FINDING IN THE CHEST. Chest CT 08/18/17 20:54 IMPRESSION: No acute findings in the chest. IMPRESSION: Large amount of stool present in the colon, particularly the rectosigmoid colon. No evidence for focal inflammatory changes or free fluid. Abdomen/Pelvis CT 08/18/17 20:55 IMPRESSION: No acute findings in the chest. IMPRESSION: Large amount of stool present in the colon, particularly the rectosigmoid colon. No evidence for focal inflammatory changes or free fluid. Assessment & Plan - Diagnosis (1) Anemia Qualifiers: Anemia type: iron deficiency Iron deficiency anemia type: unspecified iron deficiency Qualified Code(s): D50.9 - Iron deficiency anemia, unspecified Is this a current diagnosis for this admission?: Yes Plan: All labs point to iron deficiency as primary cause of his abnormal blood counts. He has received 1 unit pRBCs. I will also order INFeD 1000 mg x 1 dose today. Watch CBC and consider another unit pRBCs. Cause of the iron deficiency as yet unclear. Must rule out GI bleed. I agree with GI consult for EGD and colonoscopy. The elevated PLT are a common reaction to severe iron deficiency. If these do not normalize as his ferritin and HGB improve, then I will recommend further testing (2) Constipation Is this a current diagnosis for this admission?: Yes Plan: I would start regular bowel regimen. His mother states he usually has very hard stools. I will defer to GI for recommendations. - Plan Summary Plan Summary: Thank you for this consultation. I will be happy to follow him with you both inpatient and outpatient. Please call me directly with any concerns or questions.
[2017-08-19] MEDS ORDERED: IRON DEXTRAN COMPLEX 25 MG in SYRINGE, DISPOSABLE, 1 EACH IV PRN (09:46)
[2017-08-19] MEDS ORDERED: IRON DEXTRAN COMPLEX IV PRN ×2 (09:48)
[2017-08-19] MEDS ORDERED: NORMAL SALINE IV PRN ×2 (09:48)
[2017-08-19 10:10] LABS: PATH REVIEW PATHOLOGIST REVIEWED
[2017-08-19] MEDS: PIPERACILLIN SODIUM/TAZOBACTAM 3.375 GM in NORMAL SALINE 100 ML IV SCH ×3 (10:33→20:42)
[2017-08-19] MEDS ORDERED: FENTANYL CITRATE INJ/PF 100 MCG/2 ML AMPUL IV PRN ×2 (13:33)
[2017-08-19] MEDS ORDERED: PROPOFOL INJ 200 MG/20 ML VIAL IV ONE (14:21)
--- NOTE | 2017-08-19 14:49 | Operative Report ---
Operative Report DATE OF SURGERY: 08/19/17 Operative Report: The risks benefits and alternatives of the procedure explained to the patient in detail and informed consent is obtained.A GIF Olympus video scope was inserted into the patient's mouth and hypopharynx, the esophagus is identified intubated and insufflated, the scope was then advanced through the esophagus stomach and duodenum, retroflexion maneuver is done, the esophagus stomach and first and second portions of the duodenum examined PREOPERATIVE DIAGNOSIS: Rule out GI bleed POSTOPERATIVE DIAGNOSIS: Mild gastritis status post biopsy rule out Helicobacter pylori OPERATION: EGD with biopsy SURGEON: ISIDRO MATIAS ANESTHESIA: LMAC TISSUE REMOVED OR ALTERED: As noted above. COMPLICATIONS: None. ESTIMATED BLOOD LOSS: None. INTRAOPERATIVE FINDINGS: As noted above. PROCEDURE: Patient tolerated procedure well. He sent back to his room in good condition. Resume regular diet as noted Resume regular activity level No immediate postprocedure complications are noted. We will wait on biopsy. No active bleeding noted He is heme-negative on exam Likely does not have a GI issue We will wait for oncology recommendations with regards to his thrombocytosis
--- NOTE | 2017-08-19 14:55 | PDOC CONSULTATION ---
Consultation Consult Date: 08/18/17 Attending physician:: ISIDRO MATIAS Consult reason:: Possible GI bleeding History of Present Illness Admission Date/PCP: 08/19/17 00:40 MILA ELIZABETH MD History of Present Illness: I was called by the hospitalist physician overnight with regards to potential admission of this patient. He is a patient with cerebral palsy Was noted to be profoundly anemic Apparently he was noted to have heme negative stools. He is admitted to be transfused. He is not likely going to be able to tolerate prep for lower GI workup However EGD can be done to rule out upper GI bleed. Patient is at home lives with his mom. Patient apparently has not been refusing food There has been no significant regurgitation. No melena, hematemesis has been reported. Past Medical History Neurological Medical History: Reports: Seizures Musculoskeltal Medical History: Reports: Other - Cerebral Palsey, Muscular Dystrophy Past Surgical History Past Surgical History: Reports: Other - muscle release since contracted per mother. Social History Lives with: Family, Parents Smoking Status: Never Smoker Cigarettes Packs Per Day: 0 Frequency of Alcohol Use: None Drugs: None - Advance Directive Resuscitation Status: Full Code Family History Family History: Reviewed & Not Pertinent Parental Family History Reviewed: Yes Children Family History Reviewed: Unknown Sibling(s) Family History Reviewed.: Unknown Medication/Allergy Home Medications: Albuterol Sulfate [Ventolin 0.083% Neb 2.5 mg/3 ml Ampul] 1 vial IH RTQ4HP PRN 08/19/17 Chlorhexidine Gluconate [Periogard 0.12% Oral Rinse 15 ml] 1 applic MM BIDP PRN 08/19/17 Ciprofloxacin HCl/Dexameth [Ciprodex Otic Suspension 7.5 ml Bottle] 4 drop AU BID 08/19/17 Fluticasone Propionate [Flonase Nasal [place] 50 Mcg/[place] 16 gm] 1 spray NASL Q12 08/19/17 Ipratropium Patriot [Atrovent 0.02% Neb 0.5 Mg/2.5 Ml Vial.Neb] 0.5 mg IH RTQ8 08/19/17 Lansoprazole [Prevacid 15 Mg Odt Tablet] 15 mg PO BIDACBS 08/19/17 Phenobarbital [Phenobarbital 64.8 Mg Tablet] 64.8 mg PO DAILY 08/19/17 Allergies/Adverse Reactions: No Known Allergies Allergy (Verified 08/18/17 19:20) Review of Systems ROS unobtainable: Due to mental status Constitutional: ABSENT: fever(s), headache(s), night sweats, weakness, weight loss Eyes: ABSENT: visual disturbances Ears: ABSENT: hearing changes Nose, Mouth, and Throat: ABSENT: mouth pain, sore throat Cardiovascular: ABSENT: chest pain, orthropnea Respiratory: ABSENT: dyspnea, hemoptysis Gastrointestinal: ABSENT: hematemesis, hematochezia, melena, nausea, vomiting Genitourinary: ABSENT: dysuria, hematuria Musculoskeletal: ABSENT: deformity, joint swelling Integumentary: ABSENT: pruritus Neurological: ABSENT: syncope, tingling, tremor(s), vertigo Endocrine: ABSENT: polydipsia, polyphagia, polyuria Hematologic/Lymphatic: ABSENT: easy bruising Physical Exam Vital Signs: Temp Pulse Resp BP Pulse Ox 97.3 F 90 16 108/68 94 08/19/17 07:47 08/19/17 08:09 08/19/17 08:09 08/19/17 07:47 08/19/17 08:09 Intake & Output 08/18/17 08/19/17 08/20/17 06:59 06:59 06:59 Intake Total 350 150 Output Total 0 Balance 350 150 General appearance: PRESENT: mild distress, thin Head exam: PRESENT: atraumatic, normocephalic Eye exam: PRESENT: EOMI, PERRLA. ABSENT: scleral icterus Mouth exam: PRESENT: moist, neck supple Throat exam: ABSENT: tonsillar exudate, tonsillogmegaly Neck exam: ABSENT: meningismus, tenderness, thyromegaly Respiratory exam: PRESENT: unlabored. ABSENT: symmetrical, tachypnea, wheezes Cardiovascular exam: PRESENT: RRR, +S1, +S2 GI/Abdominal exam: PRESENT: soft. ABSENT: rebound, rigid, tenderness Extremities exam: ABSENT: joint swelling Focused psych exam: ABSENT: restlessness Skin exam: ABSENT: mottled, pallor, urticaria, vesicles Results Laboratory Results: 08/19/17 06:35 08/19/17 08/19/17 08/19/17 00:42 00:42 00:42 WBC RBC Hgb Hct MCV MCH MCHC RDW Plt Count Retic Count (auto) 1.47 Absolute Retic 0.057 Lactic Acid 0.9 Iron 12.6 L TIBC 396 % Saturation 3 Ferritin 3.00 L Vitamin B12 Folate > 20.00 08/19/17 08/19/17 00:42 06:35 WBC 9.4 RBC 4.10 L Hgb 8.4 L D Hct 27.4 L MCV 67 L D MCH 20.5 L MCHC 30.8 L RDW 35.3 H Plt Count 901 H Retic Count (auto) Absolute Retic Lactic Acid Iron TIBC % Saturation Ferritin Vitamin B12 839.0 Folate Impressions: Chest X-Ray 08/18/17 18:07 IMPRESSION: NO ACUTE RADIOGRAPHIC FINDING IN THE CHEST. Chest CT 08/18/17 20:54 IMPRESSION: No acute findings in the chest. IMPRESSION: Large amount of stool present in the colon, particularly the rectosigmoid colon. No evidence for focal inflammatory changes or free fluid. Abdomen/Pelvis CT 08/18/17 20:55 IMPRESSION: No acute findings in the chest. IMPRESSION: Large amount of stool present in the colon, particularly the rectosigmoid colon. No evidence for focal inflammatory changes or free fluid. Assessment & Plan - Diagnosis (1) Anemia Qualifiers: Anemia type: iron deficiency Iron deficiency anemia type: unspecified iron deficiency Qualified Code(s): D50.9 - Iron deficiency anemia, unspecified Is this a current diagnosis for this admission?: Yes Plan: Possible GI bleed He is going to be admitted for possible transfusion We will not be able to perform colonoscopy not sure patient will be able to cooperate with prep However patient can proceed with upper endoscopy We will get consent from the mother. Patient episodes of the procedure including risks of bleeding, perforation requiring surgery are explained to the patient detail informed consent was obtained Follow H&H Await hematology oncology consult We will need propofol sedation - Time Time Spent: 50 to 70 Minutes
--- NOTE | 2017-08-19 20:07 | Progress Note ---
Provider Note Provider Note: Patient is a 42-year-old -[place] man with history of cerebral palsy, severe contraction cared at home by his mother brought to the ED to be evaluated for abdominal distention, tachypnea. He was transfused 1 unit of packed red cells for hemoglobin of 6.1 and seen by GI. This morning had EGD with mild gastritis status post biopsy to rule out H. pylori. Recommended to resume regular diet. He was also seen by hematology and ordered to be given IV iron. Enema ordered for evidence of large amount of stool present in the colon. Follow up for further management.
--- NOTE | 2017-08-19 21:55 | EKG REPORT ---
SEVERITY:- ABNORMAL ECG - SINUS RHYTHM : Confirmed by: Gladis Noyola 19-Aug-2017 21:54:26
[2017-08-20] MEDS: PIPERACILLIN SODIUM/TAZOBACTAM 3.375 GM in NORMAL SALINE 100 ML IV SCH ×2 (02:07→09:34)
[2017-08-20] MEDS: IPRATROPIUM/ALBUTEROL 0.5-2.5 MG/3 ML AMPUL NEB SCH ×4 (02:32→19:44)
[2017-08-20] MEDS ORDERED: SCOPOLAMINE HYDROBROMIDE 1.5 MG PATCH.TD72 TD SCH (03:30)
[2017-08-20 06:08] LABS: ABSOLUTE EOSINOPHILS # (AUTO) 0.4 10^3/uL (0.0-0.6); ABSOLUTE LYMPHOCYTES (AUTO) 2.3 10^3/uL (0.5-4.7); ABSOLUTE MONOCYTES (AUTO) 0.7 10^3/uL (0.1-1.4); ABSOLUTE NEUT (AUTO) 5.4 10^3/uL (1.7-8.2); BASOPHILS % (AUTO) 0.5 % (0-2); EOSINOPHILS % (AUTO) 4.5 % (0-6); HEMATOCRIT 25.9 % (37.9-51.0); HEMOGLOBIN 8.1 g/dL (13.5-17.0); LYMPHOCYTES % (AUTO) 25.8 % (13-45); MEAN CORPUSCULAR HEMOGLOBIN 20.7 pg (27.0-33.4); MEAN CORPUSCULAR HGB CONC 31.1 g/dL (32.0-36.0); MEAN CORPUSCULAR VOLUME 66 fl (80-97); MONOCYTES % (AUTO) 7.6 % (3-13); PLATELET COUNT 812 10^3/uL (150-450); RED CELL DISTRIBUTION WIDTH 33.9 % (11.5-14.0); SEGMENTED NEUTROPHILS % (AUTO) 61.6 % (42-78); TOTAL CELLS COUNTED % (AUTO) 100 %; WHITE BLOOD COUNT 8.7 10^3/uL (4.0-10.5)
[2017-08-20 06:10] LABS: ALANINE AMINOTRANSFERASE < 6 U/L (21-72); ALBUMIN 2.9 g/dL (3.5-5.0); ALKALINE PHOSPHATASE 46 U/L (38-126); ANION GAP 8 (5-19); ASPARTATE AMINO TRANSFERASE 27 U/L (17-59); BILIRUBIN,TOTAL 1.3 mg/dL (0.2-1.3); BLOOD UREA NITROGEN 6 mg/dL (7-20); CALCIUM 8.2 mg/dL (8.4-10.2); CARBON DIOXIDE 19 mmol/L (22-30); CHLORIDE 117 mmol/L (98-107); GLUCOSE 71 mg/dL (75-110); POTASSIUM 3.7 mmol/L (3.6-5.0); SODIUM 144.2 mmol/L (137-145); TOTAL PROTEIN 5.9 g/dL (6.3-8.2)
[2017-08-20 06:33] LABS: ANISOCYTOSIS 4+; HYPOCHROMASIA 1+; POIKILOCYTOSIS 1+
[2017-08-20 06:34] LABS: OVALOCYTES 1+; PLATELET COMMENT INCREASED; SCHISTOCYTES SLIGHT; TEAR DROP CELLS 1+
[2017-08-20 06:35] LABS: PLATELET LARGE PRESENT; SPHEROCYTES 1+
--- NOTE | 2017-08-20 06:37 | PDOC PROGRESS REPORT ---
Subjective Progress Note for:: 08/20/17 Subjective:: Mother reports that patient was not given a dinner last night, so only drank ensure. No significant change. He was given an enema last night. Reason For Visit: ANEMIA Physical Exam Vital Signs: Temp Pulse Resp BP Pulse Ox 97.6 F 88 16 119/64 92 08/20/17 03:31 08/20/17 03:31 08/20/17 03:31 08/20/17 03:31 08/20/17 03:31 Intake & Output 08/18/17 08/19/17 08/20/17 06:59 06:59 06:59 Intake Total 550 1600 Output Total 0 0 Balance 550 1600 General appearance: PRESENT: no acute distress Head exam: PRESENT: atraumatic Cardiovascular exam: PRESENT: RRR. ABSENT: systolic murmur GI/Abdominal exam: PRESENT: hyperactive bowel sounds, soft. ABSENT: tenderness Extremities exam: ABSENT: pedal edema Results Laboratory Results: 08/20/17 05:42 08/19/17 08/20/17 06:35 05:42 WBC 9.4 RBC 4.10 L Hgb 8.4 L D Hct 27.4 L MCV 67 L D MCH 20.5 L MCHC 30.8 L RDW 35.3 H Plt Count 901 H Sodium 144.2 Potassium 3.7 Chloride 117 H Carbon Dioxide 19 L Anion Gap 8 BUN 6 L Creatinine 0.44 L Est GFR ( Amer) > 60 Est GFR (Non-Af Amer) > 60 Glucose 71 L Calcium 8.2 L Total Bilirubin 1.3 AST 27 ALT < 6 L Alkaline Phosphatase 46 Total Protein 5.9 L Albumin 2.9 L Impressions: Chest X-Ray 08/18/17 18:07 IMPRESSION: NO ACUTE RADIOGRAPHIC FINDING IN THE CHEST. Chest CT 08/18/17 20:54 IMPRESSION: No acute findings in the chest. IMPRESSION: Large amount of stool present in the colon, particularly the rectosigmoid colon. No evidence for focal inflammatory changes or free fluid. Abdomen/Pelvis CT 08/18/17 20:55 IMPRESSION: No acute findings in the chest. IMPRESSION: Large amount of stool present in the colon, particularly the rectosigmoid colon. No evidence for focal inflammatory changes or free fluid. Assessment & Plan - Diagnosis (1) Anemia Qualifiers: Anemia type: iron deficiency Iron deficiency anemia type: unspecified iron deficiency Qualified Code(s): D50.9 - Iron deficiency anemia, unspecified Is this a current diagnosis for this admission?: Yes Plan: Received IV iron yesterday. Await today's CBC. I will continue to follow ferritin as outpatient over the next few months. Watch for evidence of continued active bleeding. (2) Constipation Is this a current diagnosis for this admission?: Yes Plan: Received enema last night. Await GI decision as to how to evaluate the large intestine. Results of EGD noted. - Plan Summary Plan Summary: Will continue to follow. Please call directly with questions or concerns.
[2017-08-20] MEDS ORDERED: ALBUTEROL SULFATE 0.083% NEB 2.5 MG/3 ML AMPUL NEB PRN (09:46)
[2017-08-20] MEDS ORDERED: CHLORHEXIDINE GLUCONATE 0.12% ORAL RINSE 15 ML UDC MM PRN (09:46)
[2017-08-20] MEDS: FLUTICASONE NASAL SPRAY 50 MCG/SPRY 120 SPRAY/16 GM NASL SCH ×2 (10:12→22:30)
[2017-08-20] MEDS: PHENOBARBITAL 64.8 MG TABLET PO SCH (10:12)
[2017-08-20] MEDS: CIPROFLOXACIN HCL/DEXAMETH OTIC DROP 7.5 ML AU SCH ×2 (10:13→17:04)
--- NOTE | 2017-08-20 11:24 | PDOC PROGRESS REPORT ---
Subjective Progress Note for:: 08/20/17 Subjective:: The patient is a 42-year-old male who has severe developmental delay secondary to cerebral palsy. He has multiple contractures. He is cared for at home by his mother. His mother brought him into the hospital on 2017 secondary to abnormal breathing. She noticed that he was breathing from his abdomen and he was breathing fast. She denied any evidence of aspiration, but, nursing reports from the hospital indicate that the mother is feeding the patient while he is lying supine. Also, they report that she is feeding him large amounts of food at one time and that he is not swallowing prior to additional food being placed in his mouth. The patient has been seen by GI. Upper endoscopy was performed which shows mild gastritis. A biopsy was done to rule out H. pylori. Hematology oncology was also consulted for severe anemia with thrombocytosis. The patient received 1 unit of packed red blood cells. Dr. Berry wishes to continue to follow the patient after discharge. The patient' s hemoglobin this morning is 8.1. Reason For Visit: ANEMIA Physical Exam Vital Signs: Temp Pulse Resp BP Pulse Ox 97.4 F 71 20 125/75 94 08/20/17 08:15 08/20/17 08:38 08/20/17 08:38 08/20/17 08:15 08/20/17 08:38 Intake & Output 08/19/17 08/20/17 08/21/17 06:59 06:59 06:59 Intake Total 550 1600 Output Total 0 1 Balance 550 1599 Weight 21.7 kg Additional comments: The patient is nonverbal. However, he does not appear to be in pain. He does show evidence of abdominal breathing and slight tachypnea. That being said, he does not appear to be in any respiratory distress. He is currently on room air. He is extremely small. He has generalized muscle atrophy and low body weight. He has multiple contractures of all 4 extremities. His exam is difficult secondary to the contractures, his lungs do demonstrate slight rales only at the bases. His cardiac exam appears to be regular without murmurs, gallops or rubs. He does appear to have some upper airway noise present with breathing. His abdomen is very distended. Bowel sounds are present. He does not have any guarding or rebound noted and there are no hernias or masses present. His lower extremities again show severe contractures. There is no edema present. The skin is warm, dry and intact. Results Laboratory Results: 08/20/17 05:42 08/20/17 05:42 08/20/17 08/20/17 05:42 05:42 WBC 8.7 RBC 3.90 L Hgb 8.1 L Hct 25.9 L MCV 66 L MCH 20.7 L MCHC 31.1 L RDW 33.9 H Plt Count 812 H Seg Neutrophils % 61.6 Lymphocytes % 25.8 Monocytes % 7.6 Eosinophils % 4.5 Basophils % 0.5 Absolute Neutrophils 5.4 Absolute Lymphocytes 2.3 Absolute Monocytes 0.7 Absolute Eosinophils 0.4 Absolute Basophils 0.0 Sodium 144.2 Potassium 3.7 Chloride 117 H Carbon Dioxide 19 L Anion Gap 8 BUN 6 L Creatinine 0.44 L Est GFR ( Amer) > 60 Est GFR (Non-Af Amer) > 60 Glucose 71 L Calcium 8.2 L Total Bilirubin 1.3 AST 27 ALT < 6 L Alkaline Phosphatase 46 Total Protein 5.9 L Albumin 2.9 L Impressions: Chest X-Ray 08/18/17 18:07 IMPRESSION: NO ACUTE RADIOGRAPHIC FINDING IN THE CHEST. Chest CT 08/18/17 20:54 IMPRESSION: No acute findings in the chest. IMPRESSION: Large amount of stool present in the colon, particularly the rectosigmoid colon. No evidence for focal inflammatory changes or free fluid. Abdomen/Pelvis CT 08/18/17 20:55 IMPRESSION: No acute findings in the chest. IMPRESSION: Large amount of stool present in the colon, particularly the rectosigmoid colon. No evidence for focal inflammatory changes or free fluid. Assessment & Plan - Diagnosis (1) Systemic inflammatory response syndrome (SIRS) Is this a current diagnosis for this admission?: Yes Plan: The patient presented with fever and tachycardia, but, no source of infection has been identified. Therefore, the working diagnosis is most consistent with Sirs. (2) Anemia Qualifiers: Anemia type: iron deficiency Iron deficiency anemia type: unspecified iron deficiency Qualified Code(s): D50.9 - Iron deficiency anemia, unspecified Is this a current diagnosis for this admission?: Yes Plan: The patient appears to have long-standing anemia. He has been transfused 1 unit packed red blood cells. I appreciate input from hematology/oncology. (3) Constipation Is this a current diagnosis for this admission?: Yes Plan: The patient received a soapsuds enema yesterday with a successful bowel movement. Apparently, at home he only has a bowel movement about once every 10 days. Did tell the mother that he will need to be on a bowel regimen going forward. (4) Seizure disorder Is this a current diagnosis for this admission?: Yes Plan: I will evaluate what dose of phenobarbital is needed. (5) Sepsis Qualifiers: Sepsis type: sepsis due to unspecified organism Qualified Code(s): A41.9 - Sepsis, unspecified organism Is this a current diagnosis for this admission?: No (6) Tachypnea Is this a current diagnosis for this admission?: Yes Plan: There is still the question of and/or the risk of aspiration. The patient appears to be tachypneic likely from lack of adequate space in the chest wall leading to restriction. I think that his severe constipation may be aggravating this problem. I have consulted speech therapy. (7) Thrombocytosis Is this a current diagnosis for this admission?: Yes Plan: Oncology is following. - Time Time Spent with patient: 25-34 minutes - Inpatient Certification Medical Necessity: Failure to Improve With Outpatient Therapy, Significant Comorbidiites Make Outpatient Treatment Too Risky, Need Close Monitoring Due to Risk of Patient Decompensation, Risk of Complication if Not Cared For in Hospital
[2017-08-20] MEDS ORDERED: IPRATROPIUM BROMIDE 0.02% NEB 0.5 MG/2.5 ML AMPUL NEB SCH (16:00)
--- NOTE | 2017-08-20 16:31 | PDOC PROGRESS REPORT ---
Subjective Progress Note for:: 08/20/17 Subjective:: patient underwent EGD yesterday, tolerated well had to have Propofol sedation patient did not have any bleeding sites Hematology is seeing the patient work up of thrombocytosis in progress no obvious bleeding H/H stable since transfusion Reason For Visit: ANEMIA Physical Exam Vital Signs: Temp Pulse Resp BP Pulse Ox 97.3 F 107 H 18 103/53 L 94 08/20/17 12:31 08/20/17 14:00 08/20/17 13:37 08/20/17 12:31 08/20/17 13:37 Intake & Output 08/19/17 08/20/17 08/21/17 06:59 06:59 06:59 Intake Total 550 1600 0 Output Total 0 1 Balance 550 1599 0 Weight 21.7 kg General appearance: PRESENT: mild distress Head exam: PRESENT: atraumatic, normocephalic Eye exam: PRESENT: EOMI, PERRLA. ABSENT: nystagmus, periorbital swelling, scleral icterus Mouth exam: PRESENT: moist, neck supple Throat exam: ABSENT: tonsillar exudate, tonsillogmegaly Neck exam: ABSENT: meningismus, tenderness, thyromegaly Respiratory exam: PRESENT: symmetrical, unlabored. ABSENT: tachypnea, wheezes Cardiovascular exam: PRESENT: RRR, +S1, +S2 GI/Abdominal exam: PRESENT: soft. ABSENT: rebound, rigid, tenderness Extremities exam: ABSENT: joint swelling Neurological exam: PRESENT: awake, oriented to situation, CN II-XII grossly intact. ABSENT: oriented to time Focused psych exam: ABSENT: restlessness Skin exam: PRESENT: normal color. ABSENT: mottled, pallor, petechiae, urticaria , vesicles Results Laboratory Results: 08/20/17 05:42 08/20/17 05:42 08/20/17 08/20/17 05:42 05:42 WBC 8.7 RBC 3.90 L Hgb 8.1 L Hct 25.9 L MCV 66 L MCH 20.7 L MCHC 31.1 L RDW 33.9 H Plt Count 812 H Seg Neutrophils % 61.6 Lymphocytes % 25.8 Monocytes % 7.6 Eosinophils % 4.5 Basophils % 0.5 Absolute Neutrophils 5.4 Absolute Lymphocytes 2.3 Absolute Monocytes 0.7 Absolute Eosinophils 0.4 Absolute Basophils 0.0 Sodium 144.2 Potassium 3.7 Chloride 117 H Carbon Dioxide 19 L Anion Gap 8 BUN 6 L Creatinine 0.44 L Est GFR ( Amer) > 60 Est GFR (Non-Af Amer) > 60 Glucose 71 L Calcium 8.2 L Total Bilirubin 1.3 AST 27 ALT < 6 L Alkaline Phosphatase 46 Total Protein 5.9 L Albumin 2.9 L Impressions: Chest X-Ray 08/18/17 18:07 IMPRESSION: NO ACUTE RADIOGRAPHIC FINDING IN THE CHEST. Chest CT 08/18/17 20:54 IMPRESSION: No acute findings in the chest. IMPRESSION: Large amount of stool present in the colon, particularly the rectosigmoid colon. No evidence for focal inflammatory changes or free fluid. Abdomen/Pelvis CT 08/18/17 20:55 IMPRESSION: No acute findings in the chest. IMPRESSION: Large amount of stool present in the colon, particularly the rectosigmoid colon. No evidence for focal inflammatory changes or free fluid. Assessment & Plan - Diagnosis (1) Anemia Qualifiers: Anemia type: iron deficiency Iron deficiency anemia type: unspecified iron deficiency Qualified Code(s): D50.9 - Iron deficiency anemia, unspecified Is this a current diagnosis for this admission?: Yes Plan: Likely more hemtatologic issue rather than GI bleeding constipation a predominant issue continue enemas if feeding is an issue, feeding jejunostomy would be indicated in this patient - Time Time Spent with patient: 15-24 minutes
[2017-08-20] MEDS: LANSOPRAZOLE 15 MG TAB.RAP.DR PO SCH (16:56)
[2017-08-21] MEDS: IPRATROPIUM/ALBUTEROL 0.5-2.5 MG/3 ML AMPUL NEB SCH ×4 (02:09→19:32)
[2017-08-21 07:47] LABS: ABSOLUTE BASOPHILS # (AUTO) 0.1 10^3/uL (0.0-0.2); ABSOLUTE EOSINOPHILS # (AUTO) 0.5 10^3/uL (0.0-0.6); ABSOLUTE MONOCYTES (AUTO) 0.7 10^3/uL (0.1-1.4); BASOPHILS % (AUTO) 0.9 % (0-2); EOSINOPHILS % (AUTO) 5.1 % (0-6); HEMATOCRIT 25.7 % (37.9-51.0); HEMOGLOBIN 8.1 g/dL (13.5-17.0); LYMPHOCYTES % (AUTO) 28.9 % (13-45); MEAN CORPUSCULAR HEMOGLOBIN 20.9 pg (27.0-33.4); MEAN CORPUSCULAR HGB CONC 31.4 g/dL (32.0-36.0); MEAN CORPUSCULAR VOLUME 67 fl (80-97); MONOCYTES % (AUTO) 7.2 % (3-13); PLATELET COUNT 878 10^3/uL (150-450); RED BLOOD COUNT 3.86 10^6/uL (4.35-5.55); RED CELL DISTRIBUTION WIDTH 35.9 % (11.5-14.0); SEGMENTED NEUTROPHILS % (AUTO) 57.9 % (42-78); TOTAL CELLS COUNTED % (AUTO) 100 %; WHITE BLOOD COUNT 10.4 10^3/uL (4.0-10.5)
[2017-08-21 07:54] LABS: ANION GAP 8 (5-19); BLOOD UREA NITROGEN 6 mg/dL (7-20); CALCIUM 9.3 mg/dL (8.4-10.2); CARBON DIOXIDE 21 mmol/L (22-30); CHLORIDE 116 mmol/L (98-107); GLUCOSE 78 mg/dL (75-110); PHOSPHORUS 3.4 mg/dL (2.5-4.5); SODIUM 145.2 mmol/L (137-145)
[2017-08-21 08:41] LABS: ANISOCYTOSIS 3+; HELMET CELLS SLIGHT; HYPOCHROMASIA 3+; OVALOCYTES 1+; PLATELET COMMENT INCREASED; POIKILOCYTOSIS 2+; POLYCHROMASIA SLIGHT; TEAR DROP CELLS 1+
[2017-08-21 08:43] LABS: PLATELET GIANT PRESENT
[2017-08-21] MEDS: PHENOBARBITAL 64.8 MG TABLET PO SCH (10:29)
[2017-08-21] MEDS: LANSOPRAZOLE 15 MG TAB.RAP.DR PO SCH ×2 (10:29→18:00)
[2017-08-21] MEDS: CIPROFLOXACIN HCL/DEXAMETH OTIC DROP 7.5 ML AU SCH ×2 (10:30→18:01)
[2017-08-21] MEDS: FLUTICASONE NASAL SPRAY 50 MCG/SPRY 120 SPRAY/16 GM NASL SCH ×2 (10:30→22:34)
--- NOTE | 2017-08-21 12:32 | PDOC PROGRESS REPORT ---
Subjective Progress Note for:: 08/21/17 Subjective:: The patient is a 42-year-old male who has severe developmental delay secondary to cerebral palsy. He has multiple contractures. He is cared for at home by his mother. His mother brought him into the hospital on 2017 secondary to abnormal breathing. She noticed that he was breathing from his abdomen and he was breathing fast. She denied any evidence of aspiration, but, nursing reports from the hospital indicate that the mother is feeding the patient while he is lying supine. Also, they report that she is feeding him large amounts of food at one time and that he is not swallowing prior to additional food being placed in his mouth. The patient has been seen by GI. Upper endoscopy was performed which shows mild gastritis. A biopsy was done to rule out H. pylori. Hematology oncology was also consulted for severe anemia with thrombocytosis. The patient received 1 unit of packed red blood cells. Dr. Berry wishes to continue to follow the patient after discharge. Speech therapy was consulted yesterday. By report, they educated the mother on proper feeding technique. Reason For Visit: ANEMIA Physical Exam Vital Signs: Temp Pulse Resp BP Pulse Ox 98.1 F 64 22 H 131/79 H 96 08/21/17 07:42 08/21/17 08:08 08/21/17 08:08 08/21/17 07:42 08/21/17 08:08 Intake & Output 08/20/17 08/21/17 08/22/17 06:59 06:59 07:59 Intake Total 1600 430 Output Total 1 Balance 1599 430 Weight 21.7 kg 31.1 kg Additional comments: The patient is sitting upright. He does not appear to be in any distress. He has contractures of all 4 extremities. He is extremely small. He appears to be alert and smiles frequently at his mother. However, he does not interact with me. Intermittently, he does have a cough which appears to be fairly strong. His lungs are noted to be clear to auscultation bilaterally. His abdomen is somewhat distended. He does have some evidence of paradoxical breathing but it looks better than yesterday. His abdomen is less distended than yesterday. Bowel sounds are present in both lower quadrants. He does not have guarding or rebound noted and there are no hernias or masses present. The lower extremities are warm to touch. No pitting edema is present. Skin is clean, warm, dry and intact without lesions or rashes. Results Laboratory Results: 08/21/17 07:13 08/21/17 07:13 08/21/17 08/21/17 07:13 07:13 WBC 10.4 RBC 3.86 L Hgb 8.1 L Hct 25.7 L MCV 67 L MCH 20.9 L MCHC 31.4 L RDW 35.9 H Plt Count 878 H Seg Neutrophils % 57.9 Lymphocytes % 28.9 Monocytes % 7.2 Eosinophils % 5.1 Basophils % 0.9 Absolute Neutrophils 6.0 Absolute Lymphocytes 3.0 Absolute Monocytes 0.7 Absolute Eosinophils 0.5 Absolute Basophils 0.1 Sodium 145.2 H Potassium 4.0 Chloride 116 H Carbon Dioxide 21 L Anion Gap 8 BUN 6 L Creatinine 0.48 L Est GFR ( Amer) > 60 Est GFR (Non-Af Amer) > 60 Glucose 78 Calcium 9.3 Phosphorus 3.4 Magnesium 1.8 Impressions: Chest X-Ray 08/18/17 18:07 IMPRESSION: NO ACUTE RADIOGRAPHIC FINDING IN THE CHEST. Chest CT 08/18/17 20:54 IMPRESSION: No acute findings in the chest. IMPRESSION: Large amount of stool present in the colon, particularly the rectosigmoid colon. No evidence for focal inflammatory changes or free fluid. Abdomen/Pelvis CT 08/18/17 20:55 IMPRESSION: No acute findings in the chest. IMPRESSION: Large amount of stool present in the colon, particularly the rectosigmoid colon. No evidence for focal inflammatory changes or free fluid. Assessment & Plan - Diagnosis (1) Systemic inflammatory response syndrome (SIRS) Is this a current diagnosis for this admission?: Yes Plan: The patient presented with fever and tachycardia, but, no source of infection has been identified. Therefore, the working diagnosis is most consistent with Sirs. (2) Anemia Qualifiers: Anemia type: iron deficiency Iron deficiency anemia type: unspecified iron deficiency Qualified Code(s): D50.9 - Iron deficiency anemia, unspecified Is this a current diagnosis for this admission?: Yes Plan: The patient appears to have long-standing anemia. He has been transfused 1 unit packed red blood cells. I appreciate input from hematology/oncology. (3) Constipation Is this a current diagnosis for this admission?: Yes Plan: The patient received a soapsuds enema with a successful bowel movement. Apparently, at home he only has a bowel movement about once every 10 days. Did tell the mother that he will need to be on a bowel regimen going forward. (4) Seizure disorder Is this a current diagnosis for this admission?: Yes Plan: Phenobarbital has been reordered (5) Sepsis Qualifiers: Sepsis type: sepsis due to unspecified organism Qualified Code(s): A41.9 - Sepsis, unspecified organism Is this a current diagnosis for this admission?: No (6) Tachypnea Is this a current diagnosis for this admission?: Yes Plan: I think this issue is mechanical. I think that the patient has a distended abdomen that impacts on the chest wall cavity. I explained this to the mother. She is in agreement. I told her that studies could be done to look for restrictive lung disease, etc. but that it would not change the management of the patient's care. Therefore, she agrees not to pursue additional workup at this time. (7) Thrombocytosis Is this a current diagnosis for this admission?: Yes Plan: Oncology is following. - Time Time Spent with patient: 25-34 minutes - Inpatient Certification Medical Necessity: Failure to Improve With Outpatient Therapy, Significant Comorbidiites Make Outpatient Treatment Too Risky, Need Close Monitoring Due to Risk of Patient Decompensation, Risk of Complication if Not Cared For in Hospital
--- NOTE | 2017-08-21 12:54 | PDOC PROGRESS REPORT ---
Subjective Progress Note for:: 08/21/17 Subjective:: No acute events overnight, pt stable this am Reason For Visit: ANEMIA Physical Exam Vital Signs: Temp Pulse Resp BP Pulse Ox 98.1 F 64 22 H 131/79 H 96 08/21/17 07:42 08/21/17 08:08 08/21/17 08:08 08/21/17 07:42 08/21/17 08:08 Intake & Output 08/20/17 08/21/17 08/22/17 06:59 06:59 07:59 Intake Total 1600 430 Output Total 1 Balance 1599 430 Weight 21.7 kg 31.1 kg General appearance: PRESENT: no acute distress, well-developed, well-nourished Head exam: PRESENT: atraumatic, normocephalic Eye exam: PRESENT: conjunctiva pink, EOMI, PERRLA. ABSENT: scleral icterus Ear exam: PRESENT: normal external ear exam Mouth exam: PRESENT: moist, tongue midline Neck exam: ABSENT: carotid bruit, JVD, lymphadenopathy, thyromegaly Respiratory exam: PRESENT: clear to auscultation poncho. ABSENT: rales, rhonchi, wheezes Cardiovascular exam: PRESENT: RRR. ABSENT: diastolic murmur, rubs, systolic murmur Pulses: PRESENT: normal dorsalis pedis pul Vascular exam: PRESENT: normal capillary refill GI/Abdominal exam: PRESENT: normal bowel sounds, soft. ABSENT: distended, guarding, mass, organolmegaly, rebound, tenderness Rectal exam: PRESENT: deferred Extremities exam: PRESENT: full ROM. ABSENT: calf tenderness, clubbing, pedal edema Neurological exam: PRESENT: alert, awake, oriented to person, oriented to place , oriented to time, oriented to situation, CN II-XII grossly intact. ABSENT: motor sensory deficit Psychiatric exam: PRESENT: appropriate affect, normal mood. ABSENT: homicidal ideation, suicidal ideation Skin exam: PRESENT: dry, intact, warm. ABSENT: cyanosis, rash Results Laboratory Results: 08/21/17 07:13 08/21/17 07:13 08/21/17 08/21/17 07:13 07:13 WBC 10.4 RBC 3.86 L Hgb 8.1 L Hct 25.7 L MCV 67 L MCH 20.9 L MCHC 31.4 L RDW 35.9 H Plt Count 878 H Seg Neutrophils % 57.9 Lymphocytes % 28.9 Monocytes % 7.2 Eosinophils % 5.1 Basophils % 0.9 Absolute Neutrophils 6.0 Absolute Lymphocytes 3.0 Absolute Monocytes 0.7 Absolute Eosinophils 0.5 Absolute Basophils 0.1 Sodium 145.2 H Potassium 4.0 Chloride 116 H Carbon Dioxide 21 L Anion Gap 8 BUN 6 L Creatinine 0.48 L Est GFR ( Amer) > 60 Est GFR (Non-Af Amer) > 60 Glucose 78 Calcium 9.3 Phosphorus 3.4 Magnesium 1.8 Impressions: Chest X-Ray 08/18/17 18:07 IMPRESSION: NO ACUTE RADIOGRAPHIC FINDING IN THE CHEST. Chest CT 08/18/17 20:54 IMPRESSION: No acute findings in the chest. IMPRESSION: Large amount of stool present in the colon, particularly the rectosigmoid colon. No evidence for focal inflammatory changes or free fluid. Abdomen/Pelvis CT 08/18/17 20:55 IMPRESSION: No acute findings in the chest. IMPRESSION: Large amount of stool present in the colon, particularly the rectosigmoid colon. No evidence for focal inflammatory changes or free fluid. Assessment & Plan - Diagnosis (1) Anemia Qualifiers: Anemia type: iron deficiency Iron deficiency anemia type: unspecified iron deficiency Qualified Code(s): D50.9 - Iron deficiency anemia, unspecified Is this a current diagnosis for this admission?: Yes Plan: Patient given 1 g of IV iron. So no further iron should be needed at this point , hemoglobin stable at 8, continue to monitor. Gastroenterology on board to assess the cause of the seeming blood loss anemia. EGD seemed unremarkable, wonder if patient would benefit from colonoscopy.
[2017-08-21] MEDS ORDERED: BISACODYL 5 MG TABEC PO ONE (17:15)
[2017-08-22 06:51] LABS: ANION GAP 11 (5-19); BLOOD UREA NITROGEN 9 mg/dL (7-20); CALCIUM 9.4 mg/dL (8.4-10.2); CARBON DIOXIDE 22 mmol/L (22-30); CHLORIDE 113 mmol/L (98-107); GLUCOSE 99 mg/dL (75-110); POTASSIUM 3.8 mmol/L (3.6-5.0); SODIUM 146.2 mmol/L (137-145)
[2017-08-22] MEDS: IPRATROPIUM/ALBUTEROL 0.5-2.5 MG/3 ML AMPUL NEB SCH ×3 (07:55→19:36)
[2017-08-22] MEDS: PHENOBARBITAL 64.8 MG TABLET PO SCH (09:10)
[2017-08-22] MEDS: LANSOPRAZOLE 15 MG TAB.RAP.DR PO SCH ×2 (09:10→18:00)
[2017-08-22] MEDS: FLUTICASONE NASAL SPRAY 50 MCG/SPRY 120 SPRAY/16 GM NASL SCH ×2 (09:11→22:06)
[2017-08-22] MEDS: CIPROFLOXACIN HCL/DEXAMETH OTIC DROP 7.5 ML AU SCH ×2 (09:11→18:01)
[2017-08-22] MEDS ORDERED: BISACODYL 5 MG TABEC PO SCH (10:00)
--- NOTE | 2017-08-22 12:19 | PDOC PROGRESS REPORT ---
Subjective Progress Note for:: 08/22/17 Subjective:: chronic anemia, negative EGD no blood loss noted Hgb is stable post transfusion patient at high risk of undergoing colonoscopy high risk of aspiration during the prep likely also very difficult to get good prep no obvious bleeding Risk of perforation, decompensation during procedure outweigh the benefits no colonoscopy is planned Reason For Visit: ANEMIA Physical Exam Vital Signs: Temp Pulse Resp BP Pulse Ox 97.4 F 66 20 141/79 H 96 08/22/17 07:16 08/22/17 07:55 08/22/17 07:55 08/22/17 07:16 08/22/17 07:55 Intake & Output 08/21/17 08/22/17 08/23/17 05:59 06:59 06:59 Intake Total Output Total Balance Weight General appearance: PRESENT: no acute distress Head exam: PRESENT: atraumatic, normocephalic Eye exam: PRESENT: EOMI, PERRLA. ABSENT: periorbital swelling, scleral icterus Mouth exam: PRESENT: moist Throat exam: ABSENT: tonsillar exudate Neck exam: ABSENT: meningismus Respiratory exam: PRESENT: symmetrical. ABSENT: rales Cardiovascular exam: PRESENT: RRR, +S1, +S2 GI/Abdominal exam: PRESENT: soft. ABSENT: rebound, rigid Focused psych exam: ABSENT: restlessness Skin exam: ABSENT: cyanosis, jaundice, vesicles Results Laboratory Results: 08/21/17 07:13 08/22/17 06:01 08/22/17 06:01 Sodium 146.2 H Potassium 3.8 Chloride 113 H Carbon Dioxide 22 Anion Gap 11 BUN 9 Creatinine 0.44 L Est GFR ( Amer) > 60 Est GFR (Non-Af Amer) > 60 Glucose 99 Calcium 9.4 Impressions: Chest X-Ray 08/18/17 18:07 IMPRESSION: NO ACUTE RADIOGRAPHIC FINDING IN THE CHEST. Chest CT 08/18/17 20:54 IMPRESSION: No acute findings in the chest. IMPRESSION: Large amount of stool present in the colon, particularly the rectosigmoid colon. No evidence for focal inflammatory changes or free fluid. Abdomen/Pelvis CT 08/18/17 20:55 IMPRESSION: No acute findings in the chest. IMPRESSION: Large amount of stool present in the colon, particularly the rectosigmoid colon. No evidence for focal inflammatory changes or free fluid. Assessment & Plan - Diagnosis (1) Anemia Qualifiers: Anemia type: iron deficiency Iron deficiency anemia type: unspecified iron deficiency Qualified Code(s): D50.9 - Iron deficiency anemia, unspecified Is this a current diagnosis for this admission?: Yes Plan: no obvious bleeding significant issue with regards to getting prep done at high risk for aspiration, resp difficulties during sedation because of contraction and disproportionate anatomy, high risk for perforation as well no colonoscopy is planned if no other issues, outpatient Hematology follow up only consider for possible colonoscopy if any sign of observed documented GI bleeding - Time Time Spent with patient: 15-24 minutes
--- NOTE | 2017-08-22 12:53 | PDOC PROGRESS REPORT ---
Subjective Progress Note for:: 08/22/17 Subjective:: The patient is a 42-year-old male who has severe developmental delay secondary to cerebral palsy. He has multiple contractures. He is cared for at home by his mother. His mother brought him into the hospital on 2017 secondary to abnormal breathing. She noticed that he was breathing from his abdomen and he was breathing fast. She denied any evidence of aspiration, but, nursing reports from the hospital indicate that the mother is feeding the patient while he is lying supine. Also, they report that she is feeding him large amounts of food at one time and that he is not swallowing prior to additional food being placed in his mouth. The patient has been seen by GI. Upper endoscopy was performed which shows mild gastritis. A biopsy was done to rule out H. pylori. Hematology oncology was also consulted for severe anemia with thrombocytosis. The patient received 1 unit of packed red blood cells. Dr. Berry wishes to continue to follow the patient after discharge. Speech therapy was consulted Wednesday. By verbal report, they educated the mother on proper feeding technique (this information was given to me by the mother). Dr. Martinez does not plan on pursuing colonoscopy as the risk far outweighs the benefit. I did speak to the patient's mother regarding further workup. At this point time she agrees that the patient would not be able to tolerate the prep. While she does plan to follow-up with Dr. desai after discharge she does want her son evaluated at [facility]. She told me that she will arrange the referral through Dr. Childress's office. Reason For Visit: ANEMIA Physical Exam Vital Signs: Temp Pulse Resp BP Pulse Ox 97.4 F 66 20 141/79 H 96 08/22/17 07:16 08/22/17 07:55 08/22/17 07:55 08/22/17 07:16 08/22/17 07:55 Intake & Output 08/21/17 08/22/17 08/23/17 05:59 06:59 06:59 Intake Total Output Total Balance Weight Additional comments: The patient was being fed by his mother this morning. He was not in any obvious distress. He appears to be able to handle only small volumes of food at any one time. His lungs however remain clear to auscultation bilaterally. His cardiac exam is regular without murmurs, gallops or rubs. The abdomen is minimally distended today. Bowel sounds are present. He does not have guarding or rebound noted and there are no hernias or masses present. The lower extremities are warm to touch without edema. The skin is warm, dry and intact without lesions or rashes. Results Laboratory Results: 08/21/17 07:13 08/22/17 06:01 08/22/17 06:01 Sodium 146.2 H Potassium 3.8 Chloride 113 H Carbon Dioxide 22 Anion Gap 11 BUN 9 Creatinine 0.44 L Est GFR ( Amer) > 60 Est GFR (Non-Af Amer) > 60 Glucose 99 Calcium 9.4 Impressions: Chest X-Ray 08/18/17 18:07 IMPRESSION: NO ACUTE RADIOGRAPHIC FINDING IN THE CHEST. Chest CT 08/18/17 20:54 IMPRESSION: No acute findings in the chest. IMPRESSION: Large amount of stool present in the colon, particularly the rectosigmoid colon. No evidence for focal inflammatory changes or free fluid. Abdomen/Pelvis CT 08/18/17 20:55 IMPRESSION: No acute findings in the chest. IMPRESSION: Large amount of stool present in the colon, particularly the rectosigmoid colon. No evidence for focal inflammatory changes or free fluid. Assessment & Plan - Diagnosis (1) Systemic inflammatory response syndrome (SIRS) Is this a current diagnosis for this admission?: Yes Plan: The patient presented with fever and tachycardia, but, no source of infection has been identified. Therefore, the working diagnosis is most consistent with Sirs. (2) Anemia Qualifiers: Anemia type: iron deficiency Iron deficiency anemia type: unspecified iron deficiency Qualified Code(s): D50.9 - Iron deficiency anemia, unspecified Is this a current diagnosis for this admission?: Yes Plan: The patient appears to have long-standing anemia. He has been transfused 1 unit packed red blood cells. I appreciate input from hematology/oncology. There are no plans for colonoscopy at this time. (3) Constipation Is this a current diagnosis for this admission?: Yes Plan: Patient was given Dulcolax yesterday. This was ineffective. He will be given a Dulcolax suppository today. If this is not effective he may require another enema. (4) Seizure disorder Is this a current diagnosis for this admission?: Yes Plan: Phenobarbital has been reordered (5) Sepsis Qualifiers: Sepsis type: sepsis due to unspecified organism Qualified Code(s): A41.9 - Sepsis, unspecified organism Is this a current diagnosis for this admission?: No (6) Tachypnea Is this a current diagnosis for this admission?: Yes Plan: I think this issue is mechanical. I think that the patient has a distended abdomen that impacts on the chest wall cavity. I explained this to the mother. She is in agreement. I told her that studies could be done to look for restrictive lung disease, etc. but that it would not change the management of the patient's care. Therefore, she agrees not to pursue additional workup at this time. (7) Thrombocytosis Is this a current diagnosis for this admission?: Yes Plan: Oncology is following. - Time Time Spent with patient: 25-34 minutes - Inpatient Certification Medical Necessity: Risk of Complication if Not Cared For in Hospital - Plan Summary Plan Summary: We will aggressively work on the patient's bowel regimen today. However, if the patient's hemoglobin remains stable I think that we have accomplished what we can during this hospitalization. This was discussed with the mother. I told her that we will plan on discharge tomorrow morning if the patient remains stable and has had a successful bowel movement.
[2017-08-23] MEDS: IPRATROPIUM/ALBUTEROL 0.5-2.5 MG/3 ML AMPUL NEB SCH ×2 (02:05→08:11)
[2017-08-23 06:03] LABS: ANION GAP 9 (5-19); BLOOD UREA NITROGEN 11 mg/dL (7-20); CALCIUM 9.1 mg/dL (8.4-10.2); CARBON DIOXIDE 24 mmol/L (22-30); CHLORIDE 110 mmol/L (98-107); GLUCOSE 70 mg/dL (75-110); SODIUM 143.4 mmol/L (137-145)
[2017-08-23] MEDS: FLUTICASONE NASAL SPRAY 50 MCG/SPRY 120 SPRAY/16 GM NASL SCH (10:12)
[2017-08-23] MEDS: PHENOBARBITAL 64.8 MG TABLET PO SCH (10:13)
[2017-08-23] MEDS: CIPROFLOXACIN HCL/DEXAMETH OTIC DROP 7.5 ML AU SCH (10:13)
[2017-08-23] MEDS: LANSOPRAZOLE 15 MG TAB.RAP.DR PO SCH (10:13)
--- NOTE | 2017-08-23 11:39 | PDOC DISCHARGE SUMMARY ---
General - Admit/Disc Date/PCP Admission Date/Primary Care Provider: 08/19/17 00:40 MILA ANDERSON MD Discharge Date: 08/23/17 - Discharge Diagnosis (1) Systemic inflammatory response syndrome (SIRS) Is this a current diagnosis for this admission?: Yes (2) Anemia Is this a current diagnosis for this admission?: Yes (3) Constipation Is this a current diagnosis for this admission?: Yes (4) Seizure disorder Is this a current diagnosis for this admission?: Yes (5) Sepsis Is this a current diagnosis for this admission?: No (6) Tachypnea Is this a current diagnosis for this admission?: Yes (7) Thrombocytosis Is this a current diagnosis for this admission?: Yes - Additional Information Resuscitation Status: Full Code Discharge Diet: Other (Comments) - Mechanical soft Home Medications: Albuterol Sulfate [Ventolin 0.083% Neb 2.5 mg/3 mL Ampul] 1 vial IH RTQ4HP PRN 08/19/17 Chlorhexidine Gluconate [Periogard 0.12% Oral Rinse 15 ml] 1 applic MM BIDP PRN 08/19/17 Ciprofloxacin HCl/Dexameth [Ciprodex Otic Suspension 7.5 ml Bottle] 4 drop AU BID 08/19/17 Fluticasone Propionate [Flonase Nasal [place] 50 Mcg/[place] 16 gm] 1 spray NASL Q12 08/19/17 Ipratropium [place] [Atrovent 0.02% Neb 0.5 mg/2.5 ml Ampul] 0.5 mg IH RTQ8 01/29 Lansoprazole [Prevacid 15 mg Odt Tablet] 15 mg PO BIDACBS 08/19/17 Phenobarbital [Phenobarbital 64.8 mg Tablet] 64.8 mg PO DAILY 08/19/17 Bisacodyl [Dulcolax 10 mg Supp.rect] 10 mg IN DAILYP PRN supp.rect 08/23/17 Bisacodyl [Dulcolax 5 mg Tablet] 10 mg PO DAILY tabec 08/23/17 History of Present Illness History of Present Illness: CHRISTIE SIMPSON is a 42 year old nonverbal, contracted male with history of cerebral palsy and seizure disorder is admitted with above-mentioned complaints. The history was obtained from his mother at bedside and the ED physician and notes. According to his mother, the patient had decreased p.o. intake last week so she took him to his PCPs who thought that he had a strep throat since 4 of her grand children had it. He was started on a course of Augmentin which he finished. He seemed to be doing well but 3-4 days ago, she noticed that he was tachypneic and sounded congested and he was using his abdominal muscles to breathe. He was also more lethargic and looking weaker than his baseline. According to his mother, he is on regular diet and he seldomly chokes when he eats. There was no report of any vomiting. He was seen again by his primary physician on 08/16/2017 who thought that the patient may have had ear infection. The ear exam was limited since he had cerumen bilaterally so he was given eardrops and was restarted on Augmentin. on 08/18/2017, his mother called home health nurse since she was concerned about his breathing. She also noticed that he has been bloated since his PCP's visit. He apparently has been constipated for about a week with minimal bowel movement. She said that he had stool smears with no hematochezia or melena and his urine output was adequate. She decided to bring him to the hospital for further management and treatment. In the ED, his temperature was 98.1, heart rate 104, respiratory rate 20, blood pressure 94/64 with oxygen saturation of 94% on room air. His WBC was 16.4 with hemoglobin of 6.1 and platelet count of 1120K. UA and stool guaiac were both negative. A chest x-ray as well as CAT scan of the chest/abdomen and pelvis were done with the latter showing large amount of stool. He received 3.325 g Zosyn 1 and 1 unit of packed red blood was ordered. Hospital Course Hospital Course: The patient was admitted with the above constellation of symptoms. Due to the patient's severe anemia hematology oncology was consulted. Dr. Devine saw the patient on 08/19/2017. The patient received 1 unit of packed red blood cells and 1 dose of IV iron of 1000 mg. She plans on following the patient after discharge. Secondary to the iron deficiency anemia gastroenterology was also consulted. Dr. Beltran took the patient for upper endoscopy on 08/19/2017. EGD was essentially negative showing only mild gastritis. During EGD a biopsy was taken. The results are negative for metaplasia, dysplasia and malignancy. No Helicobacter pylori organisms were identified on immunostain.Secondary to the patient's abnormal cognitive function and severe contractures colonoscopy has been deferred. After much discussion with the patient's mother she agrees that he will not be able to tolerate preparation for colonoscopy. In addition, as I have explained to the mother and as GI has explained to the mother the patient is at increased risk of complications such as perforation. Therefore, she agrees to defer colonoscopy for now. In terms of the patient's dyspnea on admission this is likely multifactorial. It is likely secondary to the patient' s underlying anemia. However, I also feel that the patient has restrictive lung disease secondary to his anatomical abnormalities. I explained to the mother that it would be very difficult to perform plethysmography on this patient and it would not make any difference. She concurred. We also discussed the patient's severe constipation. I explained that with the abdomen being so distended this was further crowding out the chest wall. Therefore, during this admission we did augment the patient's bowel regimen. He did require a soapsuds enema on August 20. We also started Dulcolax which has been effective in this patient. The patient was also seen by speech therapy during this hospitalization. We have been concerned about the risk of aspiration. The patient's mother was educated on eating techniques to help reduce the risk of aspiration. Physical Exam Vital Signs: Temp Pulse Resp BP Pulse Ox 98.7 F 68 18 115/81 99 08/23/17 03:58 08/23/17 08:14 08/23/17 08:14 08/23/17 03:58 08/23/17 08:14 Intake & Output 08/22/17 08/23/17 08/24/17 06:59 06:59 06:59 Intake Total 203 Balance 203 Weight 30 kg Additional comments: The patient is in bed, partially inclined. He does not appear to be in any distress. He is nonverbal. He appears stable. His lungs are clear to auscultation bilaterally. His cardiac exam is regular without murmurs, gallops or rubs. The abdomen is much less distended today. Bowel sounds are present in the lower quadrants. He does not have guarding or rebound noted and there are no hernias or masses present. The extremities demonstrate severe contractures in all 4 extremities. The skin is clean, warm, dry and intact. No lesions or rashes are present. Results Laboratory Results: 08/21/17 07:13 08/23/17 04:51 08/23/17 04:51 Sodium 143.4 Potassium 4.0 Chloride 110 H Carbon Dioxide 24 Anion Gap 9 BUN 11 Creatinine 0.46 L Est GFR ( Amer) > 60 Est GFR (Non-Af Amer) > 60 Glucose 70 L Calcium 9.1 Ferritin 1330.00 H Impressions: Chest X-Ray 08/18/17 18:07 IMPRESSION: NO ACUTE RADIOGRAPHIC FINDING IN THE CHEST. Chest CT 08/18/17 20:54 IMPRESSION: No acute findings in the chest. IMPRESSION: Large amount of stool present in the colon, particularly the rectosigmoid colon. No evidence for focal inflammatory changes or free fluid. Abdomen/Pelvis CT 08/18/17 20:55 IMPRESSION: No acute findings in the chest. IMPRESSION: Large amount of stool present in the colon, particularly the rectosigmoid colon. No evidence for focal inflammatory changes or free fluid. Qualifiers - * PATEINT BEING DISCHARGED WITH ANY OF THE FOLLOWING DIAGNOSIS?: No Plan Discharge Plan: 1. Discharge to home where the patient will be under the care and supervision of his mother. 2. Follow-up with Dr. Devine in 1-2 weeks. 3. Follow-up with Dr. Anderson in 1 week. Time Spent: Greater than 30 Minutes
[2017-08-23 12:12] VITALS: BP 120/76
[2017-08-24] MEDS ORDERED: BISACODYL 5 MG TABEC PO SCH (10:00)
== END 2017-08-23 13:30 | disposition home health service (06) | DRG 812 ==
LOC: ER 17:09 → EH 08-19 00:40 → 3W 08-19 01:51
PROVIDERS: ADMIT Internal Medicine Geriatric Medicine; ATTEND Internal Medicine Geriatric Medicine
PROC: 30233N1 Transfusion of Nonautologous Red Blood Cells into Peripheral Vein, Percutaneous Approach (ICD-10-PCS; 2017-08-19)
PROC: 0DB78ZX Excision of Stomach, Pylorus, Via Natural or Artificial Opening Endoscopic, Diagnostic (ICD-10-PCS; principal; 2017-08-19 13:00)
DX: D50.9 Iron deficiency anemia, unspecified (principal); R65.10 Systemic inflammatory response syndrome (SIRS) of non-infectious origin without acute organ dysfunction; J98.4 Other disorders of lung; R06.00 Dyspnea, unspecified; G40.909 Epilepsy, unspecified, not intractable, without status epilepticus; D47.3 Essential (hemorrhagic) thrombocythemia; G80.9 Cerebral palsy, unspecified; K59.00 Constipation, unspecified; K29.70 Gastritis, unspecified, without bleeding; M62.49 Contracture of muscle, multiple sites; H61.23 Impacted cerumen, bilateral
CPT/HCPCS: 00731; 36415; 36430; 43239; 51701; 71045; 71250; 74176; 80048; 80053; 80184; 81001; 82272; 82607; 82728; 82746; 83540; 83550; 83605; 83690; 83735; 84100; 84466; 85025; 85027; 85045; 85610; 85730; 86850; 86900; 86901; 86920; 87040; 88305; 88342; 93005; 93010; 96374; 99291; J1750; J2543; J2704; J3490; J7030; J7620; P9016; S0164

== ENCOUNTER 2019-04-21 22:10 | Inpatient (IN) | payer MEDICAID ==
--- NOTE | 2019-04-22 00:03 | ER Document Report ---
ED General - General Chief Complaint: Breathing Difficulty Stated Complaint: VOMITING,FEVER,RAPID BREATHING Time Seen by Provider: 04/21/19 23:31 Information source: Parent, Relative - Sister Notes: Colton Ulrich is a 44 yo M w/ PMH cerebral palsy, severe diffuse contractures, severe mental retardation, nonverbal, chronic constipation, and seizure disorder brought into the ED by mom for fever. Mom states that the patient was otherwise well earlier today at 1:30 PM prior to her leaving to the store. She came home in between and then left again. Around 5 PM, she noted a small amount of vomit around his mouth. When she went to go On his posterior thorax, the patient had 3 episodes of projectile vomiting. She also noted that he is warm to touch. A temperature at home noted that he was febrile to 102.7. Mom states that the abdomen seems slightly distended and he is tachypneic. She thought that he needed to have a bowel movement. She had given him stool ability agents earlier that day. She gave him a Tylenol meltaway tablet 160 mg at 9pm. TRAVEL OUTSIDE OF THE [place] IN LAST 30 DAYS: No - Related Data Allergies/Adverse Reactions: No Known Allergies Allergy (Verified 04/21/19 22:19) Home Medications: Melt-aways PNR. Colace. Breathing tx Past Medical History - General Information source: Parent, Relative - Social History Smoking Status: Never Smoker Family History: Reviewed & Not Pertinent Patient has suicidal ideation: No Patient has homicidal ideation: No Neurological Medical History: Reports: Hx Seizures Renal/ Medical History: Denies: Hx Peritoneal Dialysis Past Surgical History: Reports: Other - muscle release since contracted per mother. - Immunizations Hx Diphtheria, Pertussis, Tetanus Vaccination: No Review of Systems - Review of Systems -: Yes ROS unobtainable due to patient's medical condition Physical Exam - Vital signs Vitals: Temp Pulse Resp BP Pulse Ox 99.5 F 155 H 32 H 148/96 H 95 04/21/19 22:24 04/21/19 22:24 04/21/19 22:24 04/21/19 22:24 04/21/19 22:24 Interpretation: Hypertensive, Tachycardic, Tachypneic - General General appearance: Other - ill-appearing. Nontoxic In distress: Mild - HEENT Head: Normocephalic, Atraumatic Eyes: Normal Pupils: PERRL - Respiratory Respiratory status: Respiratory distress - mild, Labored, Tachypnea Breath sounds: Normal Chest palpation: Normal - Cardiovascular Rhythm: Tachycardia Heart sounds: Normal auscultation Murmur: No - Abdominal Inspection: Normal Distension: Distended Bowel sounds: Normal Organomegaly: No organomegaly - Back Back: Nontender, Other - kyphosis and scoliosis curvature - Extremities General upper extremity: Normal color, Normal temperature, Other - Bilaterally contracted upper extremities. Atrophied and fixed General lower extremity: Normal color, Normal temperature, Other - Bilaterally contracted lower extremities, atrophied with limited range of motion. No: Cece's sign - Neurological Neuro grossly intact: No Cognition: Other - Nonverbal, able to confirm [place] Coma Scale Eye Opening: Spontaneous [place] Coma Scale Verbal: None - Nonverbal [place] Coma Scale Motor: Withdraws to Pain [place] Coma Scale Total: 9 Speech: Other - Nonverbal at baseline - Skin Skin Temperature: Warm Skin Moisture: Dry Skin Color: Normal Course - Re-evaluation Re-evalutation: Patient is ill-appearing but nontoxic. Initial vitals notable for tachycardia, tachypnea and low-grade temp however this was obtained via axillary. Concern for sepsis physiology. Differential diagnosis includes sepsis, pneumonia, UTI. 2 sets of blood cultures including lactic acid was obtained. Was initially unable to obtain patient's weight so 1 L bolus was administered. Broad-spectrum antibiotics with vancomycin and Zosyn were administered as well. CBC notable for leukocytosis without significant left shift. H&H stable. CMP within normal limits. UA is negative for infection. Chest x-ray also within normal limits. 04/22/19 02:[address] Fonseca. Would like CT abdomen and pelvis to rule out acute surgical intra-abdominal pathology. At this point in time I do not feel that the patient has an acute process in his abdomen however CT abdomen pelvis is ordered. 04/22/19 02:23 Patient is noted to be more tachycardic. He already received Tylenol 325 mg AK. Patient also received a liter of fluids and is actively receiving antibiotics. Family members signing CT consent. Mom requested that the patient be given Zofran as she feels that he is nauseated. 04/22/19 03:56 Per RN, whenever the patient rests or falls asleep, his oxygen saturation drops to 88%. She will be placing him on 2 L nasal cannula. 04/22/19 03:59 CT returned. No acute surgical pathology as underlying etiology of fever/sepsis. Calling Dr. Fonseca, no answer. 04/22/19 04:28 Rectal disimpaction performed. 0.8 kg of stool removed from the patient's rectal vault. Patient tolerated procedure well. Heart rate has also improved since. Pt accepted by Dr. Fonseca for admission. 04/22/19 06:12 Discussed with nursing staff that lactic acid still had not resulted. This was drawn initially and the lab did not run it. It was drawn a second time and still not run. Nurses will call down the lab to reassess why the lactic acid still has not resulted. - Vital Signs Vital signs: Temp Pulse Resp BP Pulse Ox 98.4 F 99 19 117/75 100 04/22/19 05:52 04/22/19 05:52 04/22/19 05:52 04/22/19 05:52 04/22/19 05:52 - Laboratory Result Diagrams: 04/22/19 00:19 04/22/19 00:19 Laboratory results interpreted by me: 04/22/19 04/22/19 00:19 00:19 WBC 15.2 H RDW 14.6 H Lymph % (Auto) 12.7 L Absolute Neuts (auto) 12.2 H Seg Neutrophils % 80.1 H Creatinine 0.46 L - EKG Interpretation by Ak EKG shows normal: Sinus rhythm, [place], Intervals, QRS Complexes - T Rate: Tachycardia When compared to previous EKG there are: Changes noted - Twave inversions in III, V1 (unchanged from prior). More tachycardic than prior Discharge - Discharge Clinical Impression: Fecal impaction, History of cerebral palsy, Nonverbal Sepsis Qualifiers: Sepsis type: sepsis due to unspecified organism Sepsis acute organ dysfunction status: without acute organ dysfunction Qualified Code(s): A41.9 - Sepsis, unspecified organism Condition: Fair Disposition: ADMITTED INPATIENT Admitting Provider: Raymundo (Hospitalist) Unit Admitted: Telemetry
--- NOTE | 2019-04-22 00:25 | RADIOLOGY REPORT (SQ) ---
EXAM DESCRIPTION: XR CHEST 1 VIEW COMPLETED DATE/TME: 04/21/2019 23:33 CLINICAL HISTORY: fever COMPARISON: 08/18/2017 FINDINGS: Single frontal view of the chest. Cardiomediastinal silhouette: Normal size and contour. Lungs: No consolidation, pneumothorax, or pleural effusion. Low lung volumes. Bones: No acute osseous abnormality. Upper abdomen: No abnormality identified. IMPRESSION: 1. No acute pulmonary process identified.
[2019-04-22 00:36] LABS: ABSOLUTE EOSINOPHILS # (AUTO) 0.2 10^3/uL (0.0-0.6); ABSOLUTE LYMPHOCYTES (AUTO) 1.9 10^3/uL (0.5-4.7); ABSOLUTE MONOCYTES (AUTO) 0.9 10^3/uL (0.1-1.4); ABSOLUTE NEUT (AUTO) 12.2 10^3/uL (1.7-8.2); BASOPHILS % (AUTO) 0.1 % (0-2); EOSINOPHILS % (AUTO) 1.5 % (0-6); HEMOGLOBIN 14.7 g/dL (13.5-17.0); LYMPHOCYTES % (AUTO) 12.7 % (13-45); MEAN CORPUSCULAR HEMOGLOBIN 30.2 pg (27.0-33.4); MEAN CORPUSCULAR HGB CONC 33.3 g/dL (32.0-36.0); MEAN CORPUSCULAR VOLUME 91 fl (80-97); MONOCYTES % (AUTO) 5.6 % (3-13); PLATELET COUNT 243 10^3/uL (150-450); RED BLOOD COUNT 4.85 10^6/uL (4.35-5.55); RED CELL DISTRIBUTION WIDTH 14.6 % (11.5-14.0); SEGMENTED NEUTROPHILS % (AUTO) 80.1 % (42-78); TOTAL CELLS COUNTED % (AUTO) 100 %; WHITE BLOOD COUNT 15.2 10^3/uL (4.0-10.5)
[2019-04-22 00:46] LABS: ALBUMIN 4.4 g/dL (3.5-5.0); ALKALINE PHOSPHATASE 95 U/L (38-126); ANION GAP 9 (5-19); ASPARTATE AMINO TRANSFERASE 24 U/L (17-59); BILIRUBIN,DIRECT 0.1 mg/dL (0.0-0.4); BILIRUBIN,TOTAL 0.6 mg/dL (0.2-1.3); BLOOD UREA NITROGEN 15 mg/dL (7-20); CALCIUM 9.8 mg/dL (8.4-10.2); CARBON DIOXIDE 30 mmol/L (22-30); CHLORIDE 102 mmol/L (98-107); GLUCOSE 106 mg/dL (75-110); POTASSIUM 4.6 mmol/L (3.6-5.0); TOTAL PROTEIN 7.6 g/dL (6.3-8.2)
[2019-04-22] MEDS ORDERED: VANCOMYCIN HCL INJ 1000 MG VIAL IV ONE (00:46)
[2019-04-22] MEDS ORDERED: PIPERACILLIN/TAZOBACTAM 3.375 GM VIAL IV ONE (00:46)
[2019-04-22] MEDS ORDERED: NORMAL SALINE 1000 ML 1,000 ML IV ONE (00:46)
[2019-04-22 01:18] LABS: APPEARANCE,URINE SLIGHTLY-CLOUDY; BILIRUBIN,URINE NEGATIVE (NEGATIVE); COLOR,URINE YELLOW; GLUCOSE, URINE NEGATIVE (NEGATIVE); KETONES,URINE NEGATIVE (NEGATIVE); LEUKOCYTE ESTERASE,URINE NEGATIVE (NEGATIVE); NITRITE,URINE NEGATIVE (NEGATIVE); PROTEIN,URINE NEGATIVE (NEGATIVE); URINE SPECIFIC GRAVITY 1.012; UROBILINOGEN,URINE NEGATIVE mg/dL (<2.0)
[2019-04-22] MEDS ORDERED: ACETAMINOPHEN 325 MG SUPP.RECT PR ONE (01:50)
[2019-04-22] MEDS ORDERED: ONDANSETRON HCL INJ/PF 4 MG/2 ML SDV IV ONE (02:24)
--- NOTE | 2019-04-22 03:34 | RADIOLOGY REPORT (SQ) ---
CT abdomen and pelvis with contrast on 04/22/2019 at 2:44 AM CLINICAL INDICATION: Sepsis of unknown origin TECHNIQUE: Multiple axial images are obtained throughout the abdomen and pelvis following the administration of IV contrast, 100 mL of Omnipaque 350 contrast was administered intravenously without complication. This exam was performed according to our departmental dose-optimization program, which includes automated exposure control, adjustment of the mA and/or kV according to patient size and/or use of iterative reconstruction technique. Total DLP is 299.19 mGy*cm. COMPARISON: 08/18/2017 FINDINGS: Abdomen: There is mild bibasilar atelectasis. There is a small hiatal hernia. There is wall thickening of the distal esophagus that may be related to esophagitis but consider follow-up upper endoscopy. The solid abdominal organs are unremarkable. There is no abdominal adenopathy. There is no free fluid or free air within the abdomen. Increased stool is noted in the colon. The abdominal portion of the GI tract is otherwise unremarkable. Pelvis: Large amount of increased stool is noted in the rectosigmoid colon consistent with fecal impaction. This displaces the bladder superiorly and to the right. Pelvic portion of the GI tract is otherwise unremarkable. There is no free fluid in the pelvis. There is no pelvic adenopathy. Chronic left hip dislocation is noted. Chronic deformity of the right hip is also noted. No acute bony abnormality is noted. IMPRESSION: 1. Increased stool throughout the colon especially in the rectosigmoid colon consistent with constipation and a significant fecal impaction. 2. Small hiatal hernia with some wall thickening of the distal esophagus that may be related to esophagitis, if indicated consider follow-up upper endoscopy. 3. No other acute abnormality.
[2019-04-22] MEDS ORDERED: MAGNESIUM HYDROXIDE SUSP 30 ML UDCUP PO PRN (04:10)
[2019-04-22] MEDS ORDERED: IPRATROPIUM/ALBUTEROL 0.5-2.5 MG/3 ML AMPUL NEB PRN (04:10)
[2019-04-22] MEDS ORDERED: ACETAMINOPHEN 650 MG SUPP.RECT PR PRN (04:10)
[2019-04-22] MEDS ORDERED: MAG HYDROX/AL HYDROX/SIMETH SUSP 30 ML UDCUP PO PRN (04:10)
[2019-04-22] MEDS: NORMAL SALINE 1000 ML 1,000 ML IV PRN ×2 (05:07→10:46)
[2019-04-22] MEDS: HEPARIN SOD (PORCINE) 5,000 UNIT/ML 1 ML VIAL SUBCUT SCH ×3 (06:05→22:30)
[2019-04-22] MEDS ORDERED: LACTULOSE SYRUP 20 GM/30 ML UDCUP PR ONE (06:21)
--- NOTE | 2019-04-22 06:30 | PDOC H&P ---
History of Present Illness Admission Date/PCP: 04/22/19 04:45 MILA ELIZABETH MD Patient complains of: Abdominal distention History of Present Illness: CHRISTIE SIMPSON is a 44 year old male with past medical history of cerebral palsy, nonverbal with severe flexion contracture, seizure disorder, recurrent constipation baseline functioning of eye contact and cooperative feeding. Patient presents with several days of abdominal distention, fever and refusal to eat. In the emergency room he has tachycardia leukocytosis and CT revealing severe fecal impaction. He receives manual disimpaction with moderate success and is referred to the hospitalist for admission. Past Medical History Neurological Medical History: Reports: Seizures Past Surgical History Past Surgical History: Reports: Other - muscle release since contracted per mother. Social History Information Source: Relative, [facility] Records Lives with: Family Smoking Status: Never Smoker Frequency of Alcohol Use: None Drugs: None - Advance Directive Resuscitation Status: Full Code Family History Family History: Hypertension Parental Family History Reviewed: Yes Children Family History Reviewed: Yes Sibling(s) Family History Reviewed.: Yes Medication/Allergy Home Medications: Albuterol Sulfate [Ventolin 0.083% Neb 2.5 mg/3 mL Ampul] 1 vial IH RTQ4HP PRN 08/19/17 Chlorhexidine Gluconate [Periogard 0.12% Oral Rinse 15 ml] 1 applic MM BIDP PRN 08/19/17 Fluticasone Propionate [Flonase Nasal [place] 50 Mcg/[place] 16 gm] 1 spray NASL Q12 PRN 08/19/17 Ipratropium [place] [Atrovent 0.02% Neb 0.5 mg/2.5 ml Ampul] 0.5 mg IH RTQ8 PRN 08/19/17 Lansoprazole [Prevacid 15 mg Odt Tablet] 15 mg PO BIDACBS 08/19/17 Phenobarbital [Phenobarbital 64.8 mg Tablet] 64.8 mg PO BID 08/19/17 Bisacodyl [Dulcolax 5 mg Tablet] 10 mg PO DAILY tabec 08/23/17 Loratadine [Claritin 10 mg Tablet] 10 mg PO DAILY PRN 04/22/19 Allergies/Adverse Reactions: No Known Allergies Allergy (Verified 04/21/19 22:19) Review of Systems ROS unobtainable: Due to mental status Physical Exam Vital Signs: Temp Pulse Resp BP Pulse Ox 98.4 F 99 19 108/63 100 04/22/19 05:52 04/22/19 05:52 04/22/19 06:01 04/22/19 06:00 04/22/19 06:01 Intake & Output 04/20/19 04/21/19 04/22/19 11:59 11:59 11:59 Intake Total 1000 Balance 1000 Weight 23.1 kg General appearance: PRESENT: mild distress, thin. ABSENT: well-developed, well- nourished Head exam: PRESENT: atraumatic. ABSENT: normocephalic Eye exam: PRESENT: conjunctiva pink, EOMI, PERRLA. ABSENT: scleral icterus Ear exam: PRESENT: normal external ear exam Mouth exam: PRESENT: moist, tongue midline Neck exam: ABSENT: carotid bruit, JVD, lymphadenopathy, thyromegaly Respiratory exam: PRESENT: accessory muscle use, crackles, decreased breath sounds, prolonged expiratory phas, retraction Cardiovascular exam: PRESENT: +S1, +S2, tachycardia Pulses: PRESENT: normal dorsalis pedis pul Vascular exam: PRESENT: normal capillary refill GI/Abdominal exam: PRESENT: distended, normal bowel sounds, soft. ABSENT: gu arding, mass, organolmegaly, rebound, tenderness Rectal exam: PRESENT: deferred Extremities exam: PRESENT: full ROM, other - Global muscular atrophy bilateral knee and hip stage II decubitus ulcers. ABSENT: calf tenderness, clubbing, pedal edema Neurological exam: PRESENT: alert, altered, CN II-XII grossly intact Psychiatric exam: PRESENT: appropriate affect, normal mood. ABSENT: homicidal ideation, suicidal ideation Skin exam: PRESENT: dry, intact, warm, other - Global muscular atrophy bilateral knee and hip stage II decubitus ulcers. ABSENT: cyanosis, rash Results Laboratory Results: 04/22/19 00:19 04/22/19 00:19 04/22/19 04/22/19 04/22/19 00:19 00:19 01:02 WBC 15.2 H RBC 4.85 Hgb 14.7 Hct 44.0 MCV 91 MCH 30.2 MCHC 33.3 RDW 14.6 H Plt Count 243 Seg Neutrophils % 80.1 H Sodium 141.2 Potassium 4.6 Chloride 102 Carbon Dioxide 30 Anion Gap 9 BUN 15 Creatinine 0.46 L Est GFR ( Amer) > 60 Glucose 106 Calcium 9.8 Total Bilirubin 0.6 AST 24 Alkaline Phosphatase 95 Total Protein 7.6 Albumin 4.4 Urine Color YELLOW Urine Appearance SLIGHTLY-CLOUDY Urine pH 7.0 Ur Specific [place] 1.012 Urine Protein NEGATIVE Urine Glucose (UA) NEGATIVE Urine Ketones NEGATIVE Urine Blood NEGATIVE Urine Nitrite NEGATIVE Ur Leukocyte Esterase NEGATIVE Urine WBC (Auto) 4 Urine RBC (Auto) 6 Impressions: Chest X-Ray 04/21/19 23:33 IMPRESSION: 1. No acute pulmonary process identified. Abdomen/Pelvis CT 04/22/19 02:08 IMPRESSION: 1. Increased stool throughout the colon especially in the rectosigmoid colon consistent with constipation and a significant fecal impaction. 2. Small hiatal hernia with some wall thickening of the distal esophagus that may be related to esophagitis, if indicated consider follow-up upper endoscopy. 3. No other acute abnormality. Assessment and Plan - Diagnosis (1) Fecal impaction Is this a current diagnosis for this admission?: Yes Plan: Lactulose enema, lactulose p.o. every 12, education for Metamucil with meals, trial clear liquids (2) History of cerebral palsy Is this a current diagnosis for this admission?: Yes Plan: At baseline severely and profoundly debilitated state, specialty bed, resume outpatient medications - Time Time Spent with patient: 15-24 minutes - Inpatient Certification Medical Necessity: Need Close Monitoring Due to Risk of Patient Decompensation
[2019-04-22] MEDS ORDERED: LACTULOSE SYRUP 20 GM/30 ML UDCUP PO ONE ×2 (07:00→11:00)
--- NOTE | 2019-04-22 11:06 | RADIOLOGY REPORT (SQ) ---
EXAM DESCRIPTION: KUB/ABDOMEN (SINGLE VIEW) COMPLETED DATE/TIME: 04/22/2019 9:58 am REASON FOR STUDY: FECAL IMPACTION COMPARISON: None. NUMBER OF VIEWS: One view. TECHNIQUE: Supine radiographic image of the abdomen acquired. LIMITATIONS: None. FINDINGS: BOWEL GAS PATTERN: Normal bowel gas pattern. No dilated loops. CONSTIPATION: moderate CALCIFICATIONS: No suspicious calcifications. SOFT TISSUES: No gross mass or suggestion of organomegaly. HARDWARE: None in the abdomen. BONES: Chronic left hip dislocation. OTHER: No other significant finding. IMPRESSION: NO RADIOGRAPHIC EVIDENCE FOR ACUTE ABDOMINAL DISEASE. Moderate constipation. TECHNICAL DOCUMENTATION: JOB ID: [id number] [employer]- All Rights Reserved Reading location - IP/workstation name: [email or web address]
[2019-04-22] MEDS ORDERED: ALBUTEROL SULFATE 0.083% NEB 2.5 MG/3 ML AMPUL NEB PRN (14:33)
[2019-04-22] MEDS ORDERED: BISACODYL 10 MG SUPP.RECT PR PRN (14:33)
[2019-04-22] MEDS ORDERED: PHENOBARBITAL 64.8 MG TABLET PO ONE (15:00)
[2019-04-22] MEDS ORDERED: PANTOPRAZOLE SODIUM 40 MG TABLET.DR PO ONE (15:30)
[2019-04-22] MEDS: IPRATROPIUM BROMIDE 0.02% NEB 0.5 MG/2.5 ML AMPUL NEB SCH (17:32)
[2019-04-22] MEDS: DOCUSATE SODIUM 100 MG/10 ML UDC PO SCH (18:00)
[2019-04-22] MEDS: LACTULOSE SYRUP 20 GM/30 ML UDCUP PO SCH (18:00)
--- NOTE | 2019-04-22 21:34 | EKG REPORT ---
SEVERITY:- BORDERLINE ECG - SINUS TACHYCARDIA BORDERLINE T ABNORMALITIES, INFERIOR LEADS : Confirmed by: Gladis Noyola 22-Apr-2019 21:33:24
[2019-04-23] MEDS: IPRATROPIUM BROMIDE 0.02% NEB 0.5 MG/2.5 ML AMPUL NEB SCH ×3 (00:46→16:16)
[2019-04-23] MEDS: LACTULOSE SYRUP 20 GM/30 ML UDCUP PO SCH (05:28)
[2019-04-23] MEDS: HEPARIN SOD (PORCINE) 5,000 UNIT/ML 1 ML VIAL SUBCUT SCH ×3 (05:29→22:08)
[2019-04-23 05:49] LABS: ABSOLUTE EOSINOPHILS # (AUTO) 0.6 10^3/uL (0.0-0.6); ABSOLUTE LYMPHOCYTES (AUTO) 2.2 10^3/uL (0.5-4.7); ABSOLUTE MONOCYTES (AUTO) 0.5 10^3/uL (0.1-1.4); ABSOLUTE NEUT (AUTO) 4.1 10^3/uL (1.7-8.2); BASOPHILS % (AUTO) 0.4 % (0-2); EOSINOPHILS % (AUTO) 8.5 % (0-6); HEMATOCRIT 36.3 % (37.9-51.0); LYMPHOCYTES % (AUTO) 29.9 % (13-45); MEAN CORPUSCULAR HEMOGLOBIN 30.5 pg (27.0-33.4); MEAN CORPUSCULAR HGB CONC 33.2 g/dL (32.0-36.0); MEAN CORPUSCULAR VOLUME 92 fl (80-97); MONOCYTES % (AUTO) 6.2 % (3-13); PLATELET COUNT 179 10^3/uL (150-450); RED BLOOD COUNT 3.96 10^6/uL (4.35-5.55); RED CELL DISTRIBUTION WIDTH 14.5 % (11.5-14.0); TOTAL CELLS COUNTED % (AUTO) 100 %; WHITE BLOOD COUNT 7.4 10^3/uL (4.0-10.5)
[2019-04-23 06:09] LABS: ANION GAP 5 (5-19); BLOOD UREA NITROGEN 5 mg/dL (7-20); CALCIUM 8.4 mg/dL (8.4-10.2); CARBON DIOXIDE 26 mmol/L (22-30); CHLORIDE 110 mmol/L (98-107); GLUCOSE 86 mg/dL (75-110)
[2019-04-23 06:14] LABS: HEMOGLOBIN 12.1 g/dL (13.5-17.0)
[2019-04-23] MEDS ORDERED: VANCOMYCIN HCL 0 MG in DEXTROSE 5%-WATER 250 ML IV NR (09:15)
[2019-04-23] MEDS: PANTOPRAZOLE SODIUM 40 MG TABLET.DR PO SCH (09:46)
[2019-04-23] MEDS: PHENOBARBITAL 64.8 MG TABLET PO SCH (09:47)
[2019-04-23] MEDS: DOCUSATE SODIUM 100 MG/10 ML UDC PO SCH ×2 (09:47→17:21)
[2019-04-23] MEDS ORDERED: (PENDING PHARMACY ID) (Lansoprazole 30 MG) PO SCH (10:00)
[2019-04-23] MEDS ORDERED: PHENOBARBITAL 32.4 MG TABLET PO SCH (10:00)
[2019-04-23] MEDS: VANCOMYCIN HCL IV SCH ×2 (10:40→22:08)
[2019-04-23] MEDS: DEXTROSE 5% IV SCH ×2 (10:40→22:08)
[2019-04-23] MEDS: WATER IV SCH ×2 (10:40→22:08)
--- NOTE | 2019-04-23 12:39 | PDOC PROGRESS REPORT ---
Subjective Progress Note for:: 04/23/19 Subjective:: This is a 44 year old male with past medical history of cerebral palsy, nonverbal with severe flexion contracture, seizure disorder, recurrent constipation baseline functioning of eye contact and cooperative feeding. Patient presents with several days of abdominal distention, fever and refusal to eat. In the emergency room he has tachycardia leukocytosis and CT revealing severe fecal impaction. No acute event overnight. He had some BM after mental disimpaction in the ER yesterday. No BM overnight so far. He is slightly distended this morning. Blood cultures came back positive for MRSA 1/2 bottles. Will repeat blood cultures. Will give patient some enema today. Will order a KUB. Reason For Visit: FECAL IMPACTION Physical Exam Vital Signs: Temp Pulse Resp BP Pulse Ox 97.2 F 106 H 17 113/63 100 04/23/19 12:00 04/23/19 12:00 04/23/19 12:00 04/23/19 12:00 04/23/19 12:00 Intake & Output 04/22/19 04/23/19 04/24/19 06:59 06:59 06:59 Intake Total 1000 3158 Output Total 0 Balance 1000 3158 Weight 50 lb 14.828 oz 50 lb 14.828 oz General appearance: PRESENT: no acute distress, thin Head exam: PRESENT: atraumatic, normocephalic Eye exam: PRESENT: conjunctiva pink, EOMI, PERRLA. ABSENT: scleral icterus Ear exam: PRESENT: normal external ear exam Mouth exam: PRESENT: moist, tongue midline Neck exam: ABSENT: carotid bruit, JVD, lymphadenopathy, thyromegaly Respiratory exam: PRESENT: clear to auscultation poncho. ABSENT: rales, rhonchi, wheezes Cardiovascular exam: PRESENT: RRR. ABSENT: diastolic murmur, rubs, systolic murmur Pulses: PRESENT: normal dorsalis pedis pul GI/Abdominal exam: PRESENT: distended. ABSENT: ascites, tenderness Rectal exam: PRESENT: deferred Neurological exam: PRESENT: alert, awake Results Laboratory Results: 04/23/19 05:13 04/23/19 05:13 04/23/19 04/23/19 05:13 05:13 WBC 7.4 RBC 3.96 L Hgb 12.1 L D Hct 36.3 L MCV 92 MCH 30.5 MCHC 33.2 RDW 14.5 H Plt Count 179 Seg Neutrophils % 55.0 Sodium 141.3 Potassium 4.0 Chloride 110 H Carbon Dioxide 26 Anion Gap 5 BUN 5 L Creatinine 0.36 L Est GFR ( Amer) > 60 Glucose 86 Calcium 8.4 Impressions: Chest X-Ray 04/21/19 23:33 IMPRESSION: 1. No acute pulmonary process identified. KUB X-Ray 04/22/19 00:00 IMPRESSION: NO RADIOGRAPHIC EVIDENCE FOR ACUTE ABDOMINAL DISEASE. Moderate constipation. Abdomen/Pelvis CT 04/22/19 02:08 IMPRESSION: 1. Increased stool throughout the colon especially in the rectosigmoid colon consistent with constipation and a significant fecal impaction. 2. Small hiatal hernia with some wall thickening of the distal esophagus that may be related to esophagitis, if indicated consider follow-up upper endoscopy. 3. No other acute abnormality. Assessment and Plan - Diagnosis (1) MRSA bacteremia Is this a current diagnosis for this admission?: Yes Plan: Blood cultures growing MRSA 1/2 bottles. Unsure if this is contamination. No definite or clear etiology at the moment. Will repeat blood cultures. Will start patient on vancomycin and continue pending results of repeat blood cultures. (2) Fecal impaction Is this a current diagnosis for this admission?: Yes Plan: Will give him some enema today. Will order a KUB. (3) Cerebral palsy Is this a current diagnosis for this admission?: Yes - Time Time Spent with patient: 25-34 minutes
[2019-04-23] MEDS ORDERED: MINERAL OIL ENEMA 133 ML PR ONE (13:15)
--- NOTE | 2019-04-23 15:57 | RADIOLOGY REPORT (SQ) ---
EXAM DESCRIPTION: KUB/ABDOMEN (SINGLE VIEW) COMPLETED DATE/TIME: 04/23/2019 3:41 pm REASON FOR STUDY: abd distention COMPARISON: 04/22/2019 NUMBER OF VIEWS: One view. TECHNIQUE: Supine radiographic image of the abdomen acquired. LIMITATIONS: None. FINDINGS: BOWEL GAS PATTERN: Interval development of gastric distension. Bowel gas pattern otherwis e unremarkable. CALCIFICATIONS: No suspicious calcifications. SOFT TISSUES: No gross mass or suggestion of organomegaly. HARDWARE: None in the abdomen. BONES: Chronic left hip dislocation. OTHER: No other significant finding. IMPRESSION: Interval development marked gastric distention. TECHNICAL DOCUMENTATION: JOB ID: [id number] [employer]- All Rights Reserved Reading location - IP/workstation name: [email or web address]
[2019-04-23] MEDS: POLYETHYLENE GLYCOL 3350 POWDER 17 GM/1 PACKET PO PRN (17:21)
[2019-04-24] MEDS: IPRATROPIUM BROMIDE 0.02% NEB 0.5 MG/2.5 ML AMPUL NEB SCH ×3 (00:41→18:06)
[2019-04-24] MEDS: HEPARIN SOD (PORCINE) 5,000 UNIT/ML 1 ML VIAL SUBCUT SCH ×3 (06:43→21:06)
--- NOTE | 2019-04-24 09:23 | RADIOLOGY REPORT (SQ) ---
EXAM DESCRIPTION: KUB/ABDOMEN (SINGLE VIEW) COMPLETED DATE/TIME: 04/24/2019 8:57 am REASON FOR STUDY: BOWEL OBSTRUCTION COMPARISON: 04/23/2019 NUMBER OF VIEWS: One view. TECHNIQUE: Supine radiographic image of the abdomen acquired. LIMITATIONS: None. FINDINGS: BOWEL GAS PATTERN: Unchanged mild gaseous distention of the stomach. Remaining bowel loop s without definite pathologic dilation. CALCIFICATIONS: No suspicious calcifications. SOFT TISSUES: No gross mass or suggestion of organomegaly. HARDWARE: None in the abdomen. BONES: Contracted posture. No acute findings. Unchanged chronically dislocated left hip. OTHER: No other significant finding. IMPRESSION: Mild gaseous gastric distention, decreased from prior. No other pathologically dilated loops of bowel. TECHNICAL DOCUMENTATION: JOB ID: [id number] [employer]- All Rights Reserved Reading location - IP/workstation name: [email or web address]
[2019-04-24] MEDS: DOCUSATE SODIUM 100 MG/10 ML UDC PO SCH ×2 (10:04→18:14)
[2019-04-24] MEDS: PHENOBARBITAL 64.8 MG TABLET PO SCH (10:08)
[2019-04-24] MEDS: POLYETHYLENE GLYCOL 3350 POWDER 17 GM/1 PACKET PO PRN (10:08)
[2019-04-24] MEDS: PANTOPRAZOLE SODIUM 40 MG TABLET.DR PO SCH (10:08)
[2019-04-24] MEDS: WATER IV SCH ×2 (10:09→22:21)
[2019-04-24] MEDS: VANCOMYCIN HCL IV SCH ×2 (10:09→22:21)
[2019-04-24] MEDS: DEXTROSE 5% IV SCH ×2 (10:09→22:21)
--- NOTE | 2019-04-24 13:01 | PDOC PROGRESS REPORT ---
Subjective Progress Note for:: 04/24/19 Subjective:: This is a 44 year old male with past medical history of cerebral palsy, nonverbal with severe flexion contracture, seizure disorder, recurrent constipation baseline functioning of eye contact and cooperative feeding. Patient presents with several days of abdominal distention, fever and refusal to eat. In the emergency room he has tachycardia leukocytosis and CT revealing severe fecal impaction. 04/23: He had some BM after mental disimpaction in the ER yesterday. No BM overnight so far. He is slightly distended this morning. Blood cultures came back positive for MRSA 1/2 bottles. Will repeat blood cultures. Will give patient some enema today. Will order a KUB. 04/24: No acute event overnight. He had a bowel movement overnight. First set of blood cultures grew MRSA 1/2 bottles. He was started on vancomycin. The second set of blood cultures still growing possible staph this morning. Patient does have poor oral dentition and has 2 bad cavities cavities on his right molars. Will pursue an echocardiogram to evaluate for vegetations. Reason For Visit: BACTEREMIA,FECAL IMPACTION Physical Exam Vital Signs: Temp Pulse Resp BP Pulse Ox 98.4 F 92 18 130/79 H 96 04/24/19 04:00 04/24/19 08:10 04/24/19 08:10 04/24/19 04:00 04/24/19 08:10 Intake & Output 04/23/19 04/24/19 04/25/19 06:59 06:59 06:59 Intake Total 3158 1244 100 Balance 3158 1244 100 Weight 50 lb 14.828 oz General appearance: PRESENT: no acute distress, thin Head exam: PRESENT: atraumatic, normocephalic Eye exam: PRESENT: conjunctiva pink, EOMI, PERRLA. ABSENT: scleral icterus Ear exam: PRESENT: normal external ear exam Mouth exam: PRESENT: moist, tongue midline Neck exam: ABSENT: carotid bruit, JVD, lymphadenopathy, thyromegaly Respiratory exam: PRESENT: clear to auscultation poncho. ABSENT: rales, rhonchi, wheezes Cardiovascular exam: PRESENT: RRR. ABSENT: bradycardia Pulses: PRESENT: normal dorsalis pedis pul Vascular exam: PRESENT: normal capillary refill GI/Abdominal exam: PRESENT: normal bowel sounds, soft. ABSENT: distended, guarding, mass, organolmegaly, rebound, tenderness Rectal exam: PRESENT: deferred Extremities exam: PRESENT: other - +contractures Neurological exam: PRESENT: alert, awake Results Laboratory Results: 04/23/19 05:13 04/23/19 05:13 04/22/19 01:59 Blood Blood Culture (PCR) - Final Staphylococcus Species Impressions: Chest X-Ray 04/21/19 23:33 IMPRESSION: 1. No acute pulmonary process identified. Abdomen/Pelvis CT 04/22/19 02:08 IMPRESSION: 1. Increased stool throughout the colon especially in the rectosigmoid colon consistent with constipation and a significant fecal impaction. 2. Small hiatal hernia with some wall thickening of the distal esophagus that may be related to esophagitis, if indicated consider follow-up upper endoscopy. 3. No other acute abnormality. KUB X-Ray 04/24/19 07:00 IMPRESSION: Mild gaseous gastric distention, decreased from prior. No other pathologically dilated loops of bowel. Assessment and Plan - Diagnosis (1) MRSA bacteremia Is this a current diagnosis for this admission?: Yes Plan: First set of blood cultures grew MRSA 1/2 bottles. He was started on vancomycin. The second set of blood cultures still growing possible staph this morning. Patient does have poor oral dentition and has 2 bad cavities cavities on his right molars. Will pursue an echocardiogram to evaluate for vegetations. Will also consult ID. (2) Fecal impaction Is this a current diagnosis for this admission?: Yes Plan: Improving. Repeat KUB shows improvement. Continue MiraLAX as needed. (3) Cerebral palsy Is this a current diagnosis for this admission?: Yes - Time Time Spent with patient: 25-34 minutes
[2019-04-24] MEDS: CARBAMIDE PEROXIDE 6.5% OTIC SOLN 15 ML AU SCH ×2 (18:14→22:21)
[2019-04-25] MEDS: IPRATROPIUM BROMIDE 0.02% NEB 0.5 MG/2.5 ML AMPUL NEB SCH ×4 (00:39→23:56)
[2019-04-25] MEDS: HEPARIN SOD (PORCINE) 5,000 UNIT/ML 1 ML VIAL SUBCUT SCH ×3 (05:56→21:58)
[2019-04-25] MEDS: PANTOPRAZOLE SODIUM 40 MG TABLET.DR PO SCH (09:04)
[2019-04-25] MEDS: DOCUSATE SODIUM 100 MG/10 ML UDC PO SCH ×2 (09:04→19:19)
[2019-04-25] MEDS: PHENOBARBITAL 64.8 MG TABLET PO SCH (09:04)
[2019-04-25] MEDS: CARBAMIDE PEROXIDE 6.5% OTIC SOLN 15 ML AU SCH ×2 (09:04→21:57)
--- NOTE | 2019-04-25 09:53 | Progress Note ---
Provider Note Provider Note: [facility] Telephone Advice Consultation Chart reviewed. Patient is a 44-year-old man with seizure disorder, chronic constipation, cerebral palsy, severe contractures who was admitted to the hospital due to fecal impaction. He had leukocytosis on admission, a CT scan of abdomen and pelvis was positive for esophageal thickening, fecal impaction. He had blood cultures on admission and had 2 different species of Staphylococcus not aureus. ID consulted for recommendations. PMH: cerebral palsy contractures severe mental retardation chronic constipation Seizure disorder Allergies: No Known Allergies Allergy (Verified 04/21/19 22:19) Medications: Albuterol Sulfate [Ventolin 0.083% Neb 2.5 mg/3 ml Ampul] 1 vial NEB Q4HP PRN 04/22/19 [History] Bisacodyl [Dulcolax 10 mg Supp.rect] 10 mg MA DAILYP PRN 04/22/19 [History] Docusate Sodium [Colace 100 mg/10 ml Oral Soln] 100 mg PO BID 04/22/19 [History] Ipratropium [place] [Atrovent 0.02% Neb 0.5 Mg/2.5 Ml Vial.Neb] 0.5 mg IH TID 04/22/19 [History] Lansoprazole [Prevacid 30 Mg Odt Tablet] 30 mg PO DAILY 04/22/19 [History] Phenobarbital [Phenobarbital 32.4 Mg Tablet] 64.8 mg PO DAILY 04/22/19 [History] Vital Signs: Temp Pulse Resp BP Pulse Ox 97.6 F 105 H 18 127/81 H 98 04/25/19 00:04 04/25/19 08:23 04/25/19 08:23 04/25/19 00:04 04/25/19 08:23 Intake & Output 04/24/19 04/25/19 04/26/19 06:59 06:59 06:59 Intake Total 1244 1034 Balance 1244 1034 Weight 19.6 kg Weight/Height Weight 19.6 kg Height 4 ft 7 in Laboratories: 04/23/19 05:13 04/23/19 05:13 MCV 92 fl (80-97) 04/23/19 05:13 MCH 30.5 pg (27.0-33.4) 04/23/19 05:13 MCHC 33.2 g/dL (32.0-36.0) 04/23/19 05:13 RDW 14.5 % (11.5-14.0) H 04/23/19 05:13 Seg Neutrophils % 55.0 % (42-78) 04/23/19 05:13 Chloride 110 mmol/L (98-107) H 04/23/19 05:13 Carbon Dioxide 26 mmol/L (22-30) 04/23/19 05:13 Anion Gap 5 (5-19) 04/23/19 05:13 Est GFR ( Amer) > 60 (>60) 04/23/19 05:13 Glucose 86 mg/dL (75-110) 04/23/19 05:13 Lactic Acid 0.9 mmol/L (0.7-2.1) 04/22/19 00:35 Calcium 8.4 mg/dL (8.4-10.2) 04/23/19 05:13 Total Bilirubin 0.6 mg/dL (0.2-1.3) 04/22/19 00:19 AST 24 U/L (17-59) 04/22/19 00:19 Alkaline Phosphatase 95 U/L (38-126) 04/22/19 00:19 Total Protein 7.6 g/dL (6.3-8.2) 04/22/19 00:19 Albumin 4.4 g/dL (3.5-5.0) 04/22/19 00:19 Urine Color YELLOW 04/22/19 01:02 Urine Appearance SLIGHTLY-CLOUDY 04/22/19 01:02 Urine pH 7.0 (5.0-9.0) 04/22/19 01:02 Ur Specific [place] 1.012 04/22/19 01:02 Urine Protein NEGATIVE mg/dL (NEGATIVE) 04/22/19 01:02 Urine Glucose (UA) NEGATIVE mg/dL (NEGATIVE) 04/22/19 01:02 Urine Ketones NEGATIVE mg/dL (NEGATIVE) 04/22/19 01:02 Urine Blood NEGATIVE (NEGATIVE) 04/22/19 01:02 Urine Nitrite NEGATIVE (NEGATIVE) 04/22/19 01:02 Ur Leukocyte Esterase NEGATIVE (NEGATIVE) 04/22/19 01:02 Urine WBC (Auto) 4 /HPF 04/22/19 01:02 Urine RBC (Auto) 6 /HPF 04/22/19 01:02 04/22/19 01:59 Blood Blood Culture (PCR) - Final Staphylococcus Species Radiology: Chest X-Ray 04/21/19 23:33 IMPRESSION: 1. No acute pulmonary process identified. Abdomen/Pelvis CT 04/22/19 02:08 IMPRESSION: 1. Increased stool throughout the colon especially in the rectosigmoid colon consistent with constipation and a significant fecal impaction. 2. Small hiatal hernia with some wall thickening of the distal esophagus that may be related to esophagitis, if indicated consider follow-up upper endoscopy. 3. No other acute abnormality. KUB X-Ray 04/24/19 07:00 IMPRESSION: Mild gaseous gastric distention, decreased from prior. No other pathologically dilated loops of bowel. Assessment and Recommendations: Patient evaluated due to Staphylococcus spp in blood cultures. He was admitted due to fecal impaction, no signs or symptoms of infection. Blood cultures findings more likely represent skin contamination as these are commonly in the skin and are introduced to the culture bottles from the skin. No further antibiotic therapy for this, he is not at risk for true CoNS bacteremia as c ardiac devices, central lines, orthopedic hardware. Please call if any questions. Nae Choudhary MD [facility] Infectious Diseasr [phone]
[2019-04-25] MEDS: VANCOMYCIN HCL IV SCH ×2 (10:55→19:19)
[2019-04-25] MEDS: WATER IV SCH ×2 (10:55→19:19)
[2019-04-25] MEDS: DEXTROSE 5% IV SCH ×2 (10:55→19:19)
[2019-04-25 11:26] LABS: VANCOMYCIN,TROUGH 7.4 ug/mL (5.0-20.0)
--- NOTE | 2019-04-25 11:32 | PDOC PROGRESS REPORT ---
Subjective Progress Note for:: 04/25/19 Subjective:: 04/25/2018-no complaints this a.m. she is nonverbal rely on family members for any pain or other issues Reason For Visit: BACTEREMIA,FECAL IMPACTION Physical Exam Vital Signs: Temp Pulse Resp BP Pulse Ox 98.2 F 105 H 18 127/83 H 98 04/25/19 07:30 04/25/19 08:23 04/25/19 08:23 04/25/19 07:30 04/25/19 08:23 Intake & Output 04/24/19 04/25/19 04/26/19 06:59 06:59 06:59 Intake Total 1244 1034 Balance 1244 1034 Weight 19.6 kg General appearance: PRESENT: no acute distress, well-developed, well-nourished Neck exam: ABSENT: carotid bruit, JVD, lymphadenopathy, thyromegaly Respiratory exam: PRESENT: clear to auscultation poncho, decreased breath sounds. ABSENT: rales, rhonchi, wheezes Cardiovascular exam: PRESENT: RRR. ABSENT: diastolic murmur, rubs, systolic murmur Pulses: PRESENT: +1 pedal pulses bilateral GI/Abdominal exam: PRESENT: normal bowel sounds, soft. ABSENT: distended, guarding, mass, organolmegaly, rebound, tenderness Extremities exam: PRESENT: full ROM. ABSENT: calf tenderness, clubbing, pedal edema Neurological exam: PRESENT: other - Unable to assess patient nonverbal Psychiatric exam: PRESENT: other - Unable to assess patient nonverbal Skin exam: PRESENT: dry, intact, warm. ABSENT: cyanosis, rash Results Laboratory Results: 04/23/19 05:13 04/23/19 05:13 04/22/19 01:59 Blood Blood Culture (PCR) - Final Staphylococcus Species Impressions: Chest X-Ray 04/21/19 23:33 IMPRESSION: 1. No acute pulmonary process identified. Abdomen/Pelvis CT 04/22/19 02:08 IMPRESSION: 1. Increased stool throughout the colon especially in the rectosigmoid colon consistent with constipation and a significant fecal impaction. 2. Small hiatal hernia with some wall thickening of the distal esophagus that may be related to esophagitis, if indicated consider follow-up upper endoscopy. 3. No other acute abnormality. KUB X-Ray 04/24/19 07:00 IMPRESSION: Mild gaseous gastric distention, decreased from prior. No other pathologically dilated loops of bowel. Assessment and Plan - Diagnosis (1) MRSA bacteremia Is this a current diagnosis for this admission?: Yes Plan: First set of blood cultures grew MRSA 1/2 bottles. He was started on vancomycin. The second set of blood cultures still growing possible staph this morning. Patient does have poor oral dentition and has 2 bad cavities cavities on his right molars. Will pursue an echocardiogram to evaluate for vegetations. Will also consult ID. 04/25/2019-continue vancomycin. Await sensitivities. Awaiting echocardiogram results. (2) Fecal impaction Is this a current diagnosis for this admission?: Yes Plan: Improving. Repeat KUB shows improvement. Continue MiraLAX as needed. 04/25/2019-continue MiraLAX (3) Cerebral palsy Is this a current diagnosis for this admission?: Yes Plan: -continue supportive measures - Time Time Spent with patient: 15-24 minutes - Inpatient Certification Based on my medical assessment, after consideration of the patient's comorbidities, presenting symptoms, or acuity I expect that the services needed warrant INPATIENT care.: Yes I certify that my determination is in accordance with my understanding of Medicare's requirements for reasonable and necessary INPATIENT services [42 CFR 412.3e].: Yes Medical Necessity: Need for IV Antibiotics
[2019-04-26] MEDS: WATER IV SCH ×3 (02:27→17:51)
[2019-04-26] MEDS: DEXTROSE 5% IV SCH ×3 (02:27→17:51)
[2019-04-26] MEDS: VANCOMYCIN HCL IV SCH ×3 (02:27→17:51)
[2019-04-26] MEDS: IPRATROPIUM BROMIDE 0.02% NEB 0.5 MG/2.5 ML AMPUL NEB SCH ×2 (07:48→16:23)
--- NOTE | 2019-04-26 09:06 | PDOC PROGRESS REPORT ---
Subjective Progress Note for:: 04/26/19 Subjective:: 04/25/2019-no complaints this a.m. she is nonverbal rely on family members for any pain or other issues 04/26/2019-no complaints Reason For Visit: BACTEREMIA,FECAL IMPACTION Physical Exam Vital Signs: Temp Pulse Resp BP Pulse Ox 97.4 F 93 15 131/85 H 98 04/26/19 08:04 04/26/19 08:04 04/26/19 08:04 04/26/19 08:04 04/26/19 08:04 Intake & Output 04/25/19 04/26/19 04/27/19 06:59 06:59 06:59 Intake Total 1034 911 Balance 1034 911 Weight 19.6 kg 19.6 kg General appearance: PRESENT: no acute distress, thin Neck exam: ABSENT: carotid bruit, JVD, lymphadenopathy, thyromegaly Respiratory exam: PRESENT: clear to auscultation poncho, decreased breath sounds, symmetrical, unlabored. ABSENT: rales, rhonchi, wheezes Cardiovascular exam: PRESENT: RRR. ABSENT: diastolic murmur, rubs, systolic murmur Pulses: PRESENT: +1 pedal pulses bilateral Vascular exam: PRESENT: normal capillary refill Extremities exam: PRESENT: full ROM. ABSENT: calf tenderness, clubbing, pedal edema Neurological exam: PRESENT: other - Unable to assess Psychiatric exam: PRESENT: other - Unable to assess Skin exam: PRESENT: dry, intact, warm. ABSENT: cyanosis, rash Results Laboratory Results: 04/23/19 05:13 04/23/19 05:13 04/22/19 01:59 Blood Blood Culture (PCR) - Final Staphylococcus Species Impressions: Chest X-Ray 04/21/19 23:33 IMPRESSION: 1. No acute pulmonary process identified. Abdomen/Pelvis CT 04/22/19 02:08 IMPRESSION: 1. Increased stool throughout the colon especially in the rectosigmoid colon consistent with constipation and a significant fecal impaction. 2. Small hiatal hernia with some wall thickening of the distal esophagus that may be related to esophagitis, if indicated consider follow-up upper endoscopy. 3. No other acute abnormality. KUB X-Ray 04/24/19 07:00 IMPRESSION: Mild gaseous gastric distention, decreased from prior. No other pathologically dilated loops of bowel. Assessment and Plan - Diagnosis (1) MRSA bacteremia Is this a current diagnosis for this admission?: Yes Plan: First set of blood cultures grew MRSA 1/2 bottles. He was started on vancomycin. The second set of blood cultures still growing possible staph this morning. Patient does have poor oral dentition and has 2 bad cavities cavities on his right molars. Will pursue an echocardiogram to evaluate for vegetations. Will also consult ID. 04/25/2019-continue vancomycin. Await sensitivities. Awaiting echocardiogram r esults. 04/26/2019-awaiting culture for sensitivity. Awaiting echocardiogram (2) Fecal impaction Is this a current diagnosis for this admission?: Yes Plan: Improving. Repeat KUB shows improvement. Continue MiraLAX as needed. 04/25/2019-continue MiraLAX 04/26/2019-stable (3) Cerebral palsy Is this a current diagnosis for this admission?: Yes Plan: -continue supportive measures 04/26/2019-at baseline. Continue supportive measures - Time Time Spent with patient: 15-24 minutes - Inpatient Certification Based on my medical assessment, after consideration of the patient's belle rbidities, presenting symptoms, or acuity I expect that the services needed warrant INPATIENT care.: Yes I certify that my determination is in accordance with my understanding of Medicare's requirements for reasonable and necessary INPATIENT services [42 CFR 412.3e].: Yes Medical Necessity: Need for IV Antibiotics
[2019-04-26] MEDS: POLYETHYLENE GLYCOL 3350 POWDER 17 GM/1 PACKET PO PRN (09:50)
[2019-04-26] MEDS: PANTOPRAZOLE SODIUM 40 MG TABLET.DR PO SCH (09:50)
[2019-04-26] MEDS: PHENOBARBITAL 64.8 MG TABLET PO SCH (09:50)
[2019-04-26] MEDS: DOCUSATE SODIUM 100 MG/10 ML UDC PO SCH ×2 (09:50→17:51)
[2019-04-26] MEDS: CARBAMIDE PEROXIDE 6.5% OTIC SOLN 15 ML AU SCH ×2 (09:51→21:32)
--- NOTE | 2019-04-26 12:18 | XCELERA REPORT ---
[address] [address] Transthoracic Echocardiogram Report Name: CHRISTIE ISMPSON Age: 44 yrs Gender: Male : 1975 Patient Status: Inpatient Patient Location: [address] [place], [place] [address] Study Date: 04/24/2019 02:40 PM Height: 55 in Weight: 50 lb BSA: 0.97 m2 Procedure: A two-dimensional transthoracic echocardiogram with color flow and Doppler was performed. The study was technically limited with all images being suboptimal in quality. Reason For Study: persistent Staph bacteremia, unknown source History: persistent Staph bacteremia, unknown source. Ordering Physician: TRENTON RAM Performed By: Margarita Edge Interpretation Summary The left ventricle is normal in size. There is normal left ventricular wall thickness. LV EF is 65% Left ventricular systolic function is normal. Doppler measurements suggest normal left ventricular diastolic function The left ventricular wall motion is normal. There is no thrombus. Cannot assess ASD ,VSD , or PFO. The right ventricle is normal in size and function. The right atrium is normal. The left atrial size is normal. There is no evidence of mitral valve prolapse. There is no vegetation seen on the mitral valve. There is no mitral valve stenosis. There is no mitral regurgitation noted. There is no aortic valvular vegetation. There is no aortic valve stenosis There is no LVOT obstruction. No aortic regurgitation is present. There is no tricuspid stenosis. There is a trace amount of tricuspid regurgitation Right ventricular systolic pressure is normal. RVSP is 24 to 29 mm of Hg , with RA mean of 5 to 10. There is no pulmonic valvular stenosis. There is no pulmonic valvular regurgitation. The aortic root is normal size. The inferior vena cava appeared normal and decreased > 50% with respiration (RAP 5-10 mmHg) There is no pericardial effusion. MMode/2D Measurements & Calculations RVDd: 3.1 cm LVIDd: 2.9 cm FS: 38.4 % Ao root diam: 2.3 cm IVSd: 0.86 cm LVIDs: 1.8 cm EDV(Teich): 31.2 ml Ao root area: 4.3 cm2 LVPWd: 0.87 cm ESV(Teich): 9.2 ml LA dimension: 2.4 cm EF(Teich): 70.5 % Doppler Measurements & Calculations MV E max ashu: MV P1/2t max ashu: Ao V2 max: LV V1 max P.8 cm/sec 69.3 cm/sec 118.5 cm/sec 4.0 mmHg MV A max ashu: MV P1/2t: 35.5 msec Ao max P.6 mmHg LV V1 max: 71.8 cm/sec MVA(P1/2t): 6.2 cm2 100.4 cm/sec MV E/A: 1.0 MV dec slope: 571.6 cm/sec2 MV dec time: 0.13 sec PA V2 max: TR max ashu: MV P1/2t-pr_phl: 76.3 cm/sec 218.4 cm/sec 35.5 msec PA max PG: TR max P.1 mmHg 2.3 mmHg Left Ventricle The left ventricle is normal in size. There is normal left ventricular wall thickness. LV EF is 65%. Left ventricular systolic function is normal. Doppler measurements suggest normal left ventricular diastolic function. The left ventricular wall motion is normal. There is no thrombus. Cannot assess ASD ,VSD , or PFO. Right Ventricle The right ventricle is normal in size and function. Atria The right atrium is normal. The left atrial size is normal. Mitral Valve There is no evidence of mitral valve prolapse. There is no vegetation seen on the mitral valve. There is no mitral valve stenosis. There is no mitral regurgitation noted. Aortic Valve There is no aortic valvular vegetation. There is no aortic valve stenosis. There is no LVOT obstruction. No aortic regurgitation is present. Tricuspid Valve There is no tricuspid stenosis. There is a trace amount of tricuspid regurgitation. Right ventricular systolic pressure is normal. RVSP is 24 to 29 mm of Hg , with RA mean of 5 to 10. Pulmonic Valve There is no vegetation on the pulmonic valve. There is no pulmonic valvular stenosis. There is no pulmonic valvular regurgitation. Great Vessels The aortic root is normal size. The inferior vena cava appeared normal and decreased > 50% with respiration (RAP 5-10 mmHg). Effusions There is no pericardial effusion. : TRENTON RAM, Evon
[2019-04-26] MEDS: HEPARIN SOD (PORCINE) 5,000 UNIT/ML 1 ML VIAL SUBCUT SCH ×3 (14:21→21:32)
[2019-04-27] MEDS: IPRATROPIUM BROMIDE 0.02% NEB 0.5 MG/2.5 ML AMPUL NEB SCH ×2 (00:31→08:48)
[2019-04-27] MEDS: WATER IV SCH ×2 (02:07→09:18)
[2019-04-27] MEDS: DEXTROSE 5% IV SCH ×2 (02:07→09:18)
[2019-04-27] MEDS: VANCOMYCIN HCL IV SCH ×2 (02:07→09:18)
[2019-04-27] MEDS: HEPARIN SOD (PORCINE) 5,000 UNIT/ML 1 ML VIAL SUBCUT SCH (05:27)
[2019-04-27] MEDS: DOCUSATE SODIUM 100 MG/10 ML UDC PO SCH (09:18)
[2019-04-27] MEDS: PANTOPRAZOLE SODIUM 40 MG TABLET.DR PO SCH (09:18)
[2019-04-27] MEDS: CARBAMIDE PEROXIDE 6.5% OTIC SOLN 15 ML AU SCH (09:18)
[2019-04-27] MEDS: PHENOBARBITAL 64.8 MG TABLET PO SCH (09:18)
--- NOTE | 2019-04-27 09:40 | PDOC DISCHARGE SUMMARY ---
Impression - Admit/DC Date/PCP Admission Date/Primary Care Provider: 04/22/19 04:45 MILA ELIZABETH MD Discharge Date: 04/27/19 - Discharge Diagnosis (1) MRSA bacteremia Is this a current diagnosis for this admission?: Yes (2) Fecal impaction Is this a current diagnosis for this admission?: Yes (3) Cerebral palsy Is this a current diagnosis for this admission?: Yes (4) Intestinal disease, parasitic Is this a current diagnosis for this admission?: Yes - Additional Information Resuscitation Status: Full Code Discharge Diet: As Tolerated Discharge Activity: Activity As Tolerated Referrals: MILA ELIZABETH MD [Primary Care Provider] - Follow up as needed Prescriptions: Mebendazole [Emverm] 100 mg PO BID #6 tab.chew Levofloxacin [Levaquin 750 mg Tablet] 750 mg PO DAILY #3 tablet Home Medications: Albuterol Sulfate [Ventolin 0.083% Neb 2.5 mg/3 mL Ampul] 1 vial NEB Q4HP PRN 04/22/19 Bisacodyl [Dulcolax 10 mg Supp.rect] 10 mg ID DAILYP PRN 04/22/19 Docusate Sodium [Colace Udc 100 mg/10 ml Oral Soln] 100 mg PO BID 04/22/19 Ipratropium [place] [Atrovent 0.02% Neb 0.5 mg/2.5 ml Ampul] 0.5 mg IH TID 04/22/19 Lansoprazole [Prevacid 30 mg Odt Tablet] 30 mg PO DAILY 04/22/19 Phenobarbital [Phenobarbital 32.4 mg Tablet] 64.8 mg PO DAILY 04/22/19 Carbamide Peroxide [Debrox 6.5 % Otic Drops 15 ml] 5 drop AU Q12 bottle 04/27/19 Levofloxacin [Levaquin 750 mg Tablet] 750 mg PO DAILY #3 tablet 04/27/19 Mebendazole [Emverm] 100 mg PO BID #6 tab.chew 04/27/19 History of Present Illiness History of Present Illness: CHRISTIE SIMPSON is a 44 year old male who presented to ER with abdominal distention Hospital Course Hospital Course: Patient presented to ER with abdominal distention with past medical history of cerebral palsy, nonverbal with severe flexion contracture, seizure disorder, recurrent constipation baseline. Patient mother states he had several days abdominal distention fever and refusal to eat. In the ER he was found to be tachycardic leukocytotic and CT revealed severe fecal impaction. Patient was placed on medical surgical floor and given medications for his impaction. Patient was able to pass disimpaction and at this time is improved sufficiently return home. Patient was found to have a staph hominis bacteremia and will be sent home on Levaquin 750 mg p.o. daily for the next 3 days after being given vancomycin in the hospital. Patient also has what appears to be a parasitic intestinal infection and I have gave him mebendazole 100 mg p.o. twice daily x3 days. Patient will follow-up with primary care within 1 week. Physical Exam Vital Signs: Temp Pulse Resp BP Pulse Ox 97.5 F 89 18 128/73 H 95 04/27/19 08:01 04/27/19 08:48 04/27/19 08:48 04/27/19 08:01 04/27/19 08:48 Intake & Output 04/26/19 04/27/19 04/28/19 06:59 06:59 06:59 Intake Total 1011 1014 Balance 1011 1014 Weight 19.6 kg 17.9 kg General appearance: PRESENT: no acute distress, well-developed, well-nourished Neck exam: ABSENT: carotid bruit, JVD, lymphadenopathy, thyromegaly Respiratory exam: PRESENT: clear to auscultation poncho. ABSENT: rales, rhonchi, wheezes Cardiovascular exam: PRESENT: RRR. ABSENT: diastolic murmur, rubs, systolic murmur Pulses: PRESENT: normal dorsalis pedis pul Vascular exam: PRESENT: normal capillary refill GI/Abdominal exam: PRESENT: normal bowel sounds, soft. ABSENT: distended, guarding, mass, organolmegaly, rebound, tenderness Extremities exam: PRESENT: full ROM. ABSENT: calf tenderness, clubbing, pedal edema Neurological exam: PRESENT: other - Unable to assess Psychiatric exam: PRESENT: other - Unable to assess Skin exam: PRESENT: dry, intact, warm. ABSENT: cyanosis, rash Results Laboratory Results: WBC 7.4 10^3/uL (4.0-10.5) 04/23/19 05:13 RBC 3.96 10^6/uL (4.35-5.55) L 04/23/19 05:13 Hgb 12.1 g/dL (13.5-17.0) L D 04/23/19 05:13 Hct 36.3 % (37.9-51.0) L 04/23/19 05:13 MCV 92 fl (80-97) 04/23/19 05:13 MCH 30.5 pg (27.0-33.4) 04/23/19 05:13 MCHC 33.2 g/dL (32.0-36.0) 04/23/19 05:13 RDW 14.5 % (11.5-14.0) H 04/23/19 05:13 Plt Count 179 10^3/uL (150-450) 04/23/19 05:13 Lymph % (Auto) 29.9 % (13-45) 04/23/19 05:13 [place] % (Auto) 6.2 % (3-13) 04/23/19 05:13 Eos % (Auto) 8.5 % (0-6) H 04/23/19 05:13 Baso % (Auto) 0.4 % (0-2) 04/23/19 05:13 Absolute Neuts (auto) 4.1 10^3/uL (1.7-8.2) 04/23/19 05:13 Absolute Lymphs (auto) 2.2 10^3/uL (0.5-4.7) 04/23/19 05:13 Absolute Monos (auto) 0.5 10^3/uL (0.1-1.4) 04/23/19 05:13 Absolute Eos (auto) 0.6 10^3/uL (0.0-0.6) 04/23/19 05:13 Absolute Basos (auto) 0.0 10^3/uL (0.0-0.2) 04/23/19 05:13 Seg Neutrophils % 55.0 % (42-78) 04/23/19 05:13 Sodium 141.3 mmol/L (137-145) 04/23/19 05:13 Potassium 4.0 mmol/L (3.6-5.0) 04/23/19 05:13 Chloride 110 mmol/L (98-107) H 04/23/19 05:13 Carbon Dioxide 26 mmol/L (22-30) 04/23/19 05:13 Anion Gap 5 (5-19) 04/23/19 05:13 BUN 5 mg/dL (7-20) L 04/23/19 05:13 Creatinine 0.42 mg/dL (0.52-1.25) L 04/26/19 17:49 Est GFR ( Amer) > 60 (>60) 04/26/19 17:49 Est GFR (MDRD) Non-Af > 60 (>60) 04/26/19 17:49 Glucose 86 mg/dL (75-110) 04/23/19 05:13 Lactic Acid 0.9 mmol/L (0.7-2.1) 04/22/19 00:35 Calcium 8.4 mg/dL (8.4-10.2) 04/23/19 05:13 Total Bilirubin 0.6 mg/dL (0.2-1.3) 04/22/19 00:19 Direct Bilirubin 0.1 mg/dL (0.0-0.4) 04/22/19 00:19 Neonat Total Bilirubin Not Reportable 04/22/19 00:19 Neonat Direct Bilirubin Not Reportable 04/22/19 00:19 Neonat Indirect Bili Not Reportable 04/22/19 00:19 AST 24 U/L (17-59) 04/22/19 00:19 ALT 21 U/L (<50) 04/22/19 00:19 Alkaline Phosphatase 95 U/L (38-126) 04/22/19 00:19 Total Protein 7.6 g/dL (6.3-8.2) 04/22/19 00:19 Albumin 4.4 g/dL (3.5-5.0) 04/22/19 00:19 Urine Color YELLOW 04/22/19 01:02 Urine Appearance SLIGHTLY-CLOUDY 04/22/19 01:02 Urine pH 7.0 (5.0-9.0) 04/22/19 01:02 Ur Specific [place] 1.012 04/22/19 01:02 Urine Protein NEGATIVE mg/dL (NEGATIVE) 04/22/19 01:02 Urine Glucose (UA) NEGATIVE mg/dL (NEGATIVE) 04/22/19 01:02 Urine Ketones NEGATIVE mg/dL (NEGATIVE) 04/22/19 01:02 Urine Blood NEGATIVE (NEGATIVE) 04/22/19 01:02 Urine Nitrite NEGATIVE (NEGATIVE) 04/22/19 01:02 Urine Bilirubin NEGATIVE (NEGATIVE) 04/22/19 01:02 Urine Urobilinogen NEGATIVE mg/dL (<2.0) 04/22/19 01:02 Ur Leukocyte Esterase NEGATIVE (NEGATIVE) 04/22/19 01:02 Urine WBC (Auto) 4 /HPF 04/22/19 01:02 Urine RBC (Auto) 6 /HPF 04/22/19 01:02 Urine Mucus (Auto) MOD /LPF 04/22/19 01:02 Urine Yeast (Bud[place]) PRESENT /HPF 04/22/19 01:02 Urine Ascorbic Acid NEGATIVE (NEGATIVE) 04/22/19 01:02 Time Trough Drawn 1749 04/26/19 17:49 Vancomycin Trough 13.0 ug/mL (5.0-20.0) 04/26/19 17:49 Impressions: Chest X-Ray 04/21/19 23:33 IMPRESSION: 1. No acute pulmonary process identified. KUB X-Ray 04/22/19 00:00 IMPRESSION: NO RADIOGRAPHIC EVIDENCE FOR ACUTE ABDOMINAL DISEASE. Moderate constipation. Abdomen/Pelvis CT 04/22/19 02:08 IMPRESSION: 1. Increased stool throughout the colon especially in the rectosigmoid colon consistent with constipation and a significant fecal impaction. 2. Small hiatal hernia with some wall thickening of the distal esophagus that may be related to esophagitis, if indicated consider follow-up upper endoscopy. 3. No other acute abnormality. KUB X-Ray 04/23/19 12:39 IMPRESSION: Interval development marked gastric distention. KUB X-Ray 04/24/19 07:00 IMPRESSION: Mild gaseous gastric distention, decreased from prior. No other pathologically dilated loops of bowel. Plan Time Spent: Greater than 30 Minutes Stroke Is this a Stroke Patient?: No Acute Heart Failure - Is this a Heart Failure Patient?: No
[2019-04-27 10:05] VITALS: BP 115/82
== END 2019-04-27 12:18 | disposition home or self-care (01) | DRG 389 ==
LOC: ER 22:10 → INTOOBSV 04-22 04:45 → EH 04-22 04:45 → OBSVTOIN 04-22 04:45 → 4N 04-22 06:30
PROVIDERS: ADMIT Internal Medicine; ATTEND Internal Medicine
DX: K56.41 Fecal impaction (principal); R78.81 Bacteremia; F72 Severe intellectual disabilities; B95.62 Methicillin resistant Staphylococcus aureus infection as the cause of diseases classified elsewhere; G80.9 Cerebral palsy, unspecified; G40.909 Epilepsy, unspecified, not intractable, without status epilepticus; M41.9 Scoliosis, unspecified; L89.222 Pressure ulcer of left hip, stage 2; L89.212 Pressure ulcer of right hip, stage 2; L89.892 Pressure ulcer of other site, stage 2; Z79.51 Long term (current) use of inhaled steroids; Z79.899 Other long term (current) drug therapy
CPT/HCPCS: 36415; 71045; 74018; 74177; 80048; 80053; 80202; 81001; 82565; 83605; 85025; 87040; 87077; 87150; 87186; 93005; 93010; 93306; 96365; 96367; 96375; 99285; G0378; J1644; J2405; J2543; J3370; J3490; J7030; J7060